=== PATIENT | male | born 1950 | race Caucasian/White ===

== ENCOUNTER → 2018-09-05 09:44 | Outpatient (CLI) | payer OTHER, SELFPAY ==
--- NOTE | 2018-09-05 | DI.RAD.S_ITS ---
PROCEDURE: FL BARIUM SWALLOW INDICATIONS: DYSPHAGIA COMPARISON: None. FINDINGS: Function: There is decreased and delayed esophageal peristalsis. Spontaneous gastroesophageal reflux to level of the upper third of the esophagus. Morphology: Air-contrast images demonstrate normal mucosal morphology. Single contrast views show no esophageal strictures, extrinsic mass effects, or diverticula. Limited images of the stomach demonstrate normal appearance. IMPRESSION: Severe esophageal dysmotility and delayed esophageal clearance. Spontaneous gastro-esophageal reflux to the level of the upper third of the esophagus. Dictated by: Isauro Watt M.D. on 09/05/2018 at 14:11 Approved by: Isauro Watt M.D. on 09/05/2018 at 14:13
[2018-09-05 10:41] LABS: Add Manual Diff / Slide Review NO; Basophils Absolute Auto 100 /uL (0-100); Basophils Percent Auto 1.9 % (0-2); Eosinophils Absolute Auto 500 /uL (0-450); Eosinophils Percent Auto 7.4 % (2-4); Hematocrit 49.5 % (41-53); Hemoglobin 16.4 g/dL (13.5-17.5); Lymphocytes Absolute Auto 1900 /uL (1100-4500); Lymphocytes Percent Auto 27.4 % (25-40); Mean Corpuscular HGB Conc 33.1 % (30-36); Mean Corpuscular Hemoglobin 28.5 PG (26-34); Mean Corpuscular Volume 85.9 fL (80-100); Monocytes Absolute Auto 600 /uL (0-900); Monocytes Percent Auto 8.5 % (3-14); Neutrophils Absolute Auto 3800 /uL (1500-7000); Neutrophils Percent Auto 54.8 % (50-75); Platelet Count 249 X10^3/uL (150-400); Red Blood Cell Count 5.76 X10^6/uL (4.5-5.9); Red Cell Distribution Width 14.8 % (11.6-14.8); White Blood Cell Count 6.9 X10^3/uL (4.5-11.0)
[2018-09-05 11:01] LABS: Alanine Aminotransferase 22 IU/L (21-72); Albumin Globulin Ratio 1.3 (1.0-2.8); Alkaline Phosphatase 88 U/L (38-126); Aspartate Aminotransferase 18 IU/L (17-59); Bilirubin Total 0.5 mg/dL (0.2-1.3); Blood Urea Nitrogen 18 mg/dL (9-20); Calcium 9.3 mg/dL (8.4-10.2); Carbon Dioxide 24 mmol/L (22-32); Chloride 109 mmol/L (98-107); Cholesterol 266 mg/dL (140-199); Estimated Glomerular Filt Rate > 60.0 mL/min (>60); Globulin 3.1 g/dL (1.7-4.1); Glucose 123 mg/dL (80-110); HDL Cholesterol 52 mg/dL (40-60); HEMOLYSIS < 15 (0-50); LDL Cholesterol Calculated 197 mg/dL (<100); Potassium 4.1 mmol/L (3.4-5.1); Sodium 141 mmol/L (137-145); Total Protein 7.1 g/dL (6.3-8.2); Triglycerides 87 mg/dL (35-150)
[2018-09-05 11:29] LABS: Prostate Specific Antigen Scrn 1.84 ng/mL (0.1-4.0)
--- NOTE | 2018-09-05 12:09 | DI.CT.S_ITS ---
PROCEDURE: CT CHEST WO CON INDICATIONS: DYSPNEA TECHNIQUE: Noncontrast 5 mm thick sections acquired from the pulmonary apices to the posterior costophrenic angles. 7 mm thick coronal and sagittal MIP reformats were then acquired. For radiation dose reduction, the following was used: automated exposure control, adjustment of mA and/or kV according to patient size. COMPARISON: None. FINDINGS: Image quality: Excellent. Lungs and pleura: No acute consolidation. Scattered subsegmental atelectasis and/or scarring. Bilateral upper lobe centrilobular emphysema. Subpleural scarring with calcification seen in the lingula, and along the right fissure. Punctate calcified granulomas in both lung bases. No pleural effusions or pneumothorax. Central and peripheral airways are patent and normal in caliber. There is presumed adherent/nondependent debris seen within the trachea on image 50 series 3 although technically nonspecific and could be further assessed with bronchoscopy if clinically necessary. Mild scattered areas of subpleural reticulation. Mediastinum: Heart size is normal. No pericardial effusion. No mediastinal adenopathy by size criteria. Calcified left hilar lymph nodes. Thoracic aorta and central pulmonary arteries are normal in size. Small hiatal hernia. Bones and chest wall: No suspicious bony lesions. No vertebral body compression fractures. No axillary or supraclavicular adenopathy by size criteria. Thyroid gland unremarkable. Abdomen: Low-attenuation 1 cm left adrenal nodule presumably adenoma image 65 series 2. IMPRESSION: No acute consolidation. Bilateral upper lobe centrilobular emphysema. Few scattered areas of bibasilar subpleural reticulation, technically nonspecific. No honeycombing appearance seen. These could be monitored with continued CT chest surveillance as clinically warranted. Small hiatal hernia. Additional chronic and incidental findings as above. Dictated by: Isauro Watt M.D. on 09/05/2018 at 13:05 Approved by: Isauro Watt M.D. on 09/05/2018 at 13:29
== END ==
PROVIDERS: PCP Internal Medicine; Visit Provider Internal Medicine
DX: R06.09 Other forms of dyspnea (principal); R13.10 Dysphagia, unspecified; J43.2 Centrilobular emphysema; E27.9 Disorder of adrenal gland, unspecified; K44.9 Diaphragmatic hernia without obstruction or gangrene; K21.9 Gastro-esophageal reflux disease without esophagitis; K22.4 Dyskinesia of esophagus; Z12.5 Encounter for screening for malignant neoplasm of prostate
CPT/HCPCS: 36415; 71250; 74220; 80053; 80061; 85025; G0103

== ENCOUNTER → 2018-09-29 09:51 | Outpatient (CLI) | payer OTHER, SELFPAY ==
--- NOTE | 2018-09-29 | DI.US.S_ITS ---
PROCEDURE: US ABD AORTA ANEURYSM SCREEN INDICATIONS: SCREENING FOR CARDIOVASCULAR DISORDER TECHNIQUE: Real time scanning was performed of the aorta and iliac arteries, with image documentation. COMPARISON: None. FINDINGS: Aorta: Proximal aortic diameter measures 2.4 cm. Mid-aorta measures 2.3 cm. Distal aortic diameter is 1.9 cm. Vascular calcifications indicate atherosclerosis. Iliac arteries: Right common iliac artery measures 1.2 cm. Left common iliac artery measures 1.1 cm. IMPRESSION: No abdominal aortic or proximal common iliac artery aneurysm. Dictated by: Suman Aguilar [facility] Interpreted: Isauro Watt MD on 09/29/2018 at 10:16 Approved by: Isauro Watt M.D. on 09/29/2018 at 14:52
== END ==
PROVIDERS: PCP Internal Medicine; Visit Provider Internal Medicine
DX: I70.0 Atherosclerosis of aorta (principal); Z13.6 Encounter for screening for cardiovascular disorders
CPT/HCPCS: 76706

== ENCOUNTER → 2018-12-06 10:27 | Outpatient (CLI) | payer OTHER, SELFPAY ==
[2018-12-06 11:56] LABS: Alanine Aminotransferase 23 IU/L (21-72); Albumin Globulin Ratio 1.4 (1.0-2.8); Alkaline Phosphatase 123 U/L (38-126); Aspartate Aminotransferase 23 IU/L (17-59); Bilirubin Total 0.4 mg/dL (0.2-1.3); Blood Urea Nitrogen 21 mg/dL (9-20); Calcium 9.6 mg/dL (8.4-10.2); Carbon Dioxide 25 mmol/L (22-32); Chloride 106 mmol/L (98-107); Cholesterol 162 mg/dL (140-199); Estimated Glomerular Filt Rate > 60.0 mL/min (>60); Globulin 2.8 g/dL (1.7-4.1); Glucose 120 mg/dL (80-110); HDL Cholesterol 54 mg/dL (40-60); HEMOLYSIS < 15 (0-50); LDL Cholesterol Calculated 92 mg/dL (<100); Potassium 4.3 mmol/L (3.4-5.1); Sodium 139 mmol/L (137-145); Total Protein 6.8 g/dL (6.3-8.2); Triglycerides 82 mg/dL (35-150)
== END ==
PROVIDERS: PCP Internal Medicine; Visit Provider Internal Medicine
DX: E78.00 Pure hypercholesterolemia, unspecified (principal)
CPT/HCPCS: 36415; 80053; 80061

== ENCOUNTER → 2019-08-15 11:38 | Outpatient (CLI) | payer OTHER, SELFPAY ==
[2019-08-15 11:51] LABS: Bacteria Urine None Seen; RBC Urine None Seen (0-5/HPF); WBC Urine None Seen (0-5/HPF)
[2019-08-15 12:22] LABS: Appearance Urine UA CLEAR; Bilirubin Urine UA NEGATIVE (NEGATIVE); Color Urine UA YELLOW; Glucose Urine UA NEGATIVE (Negative); Ketones Urine UA NEGATIVE (NEGATIVE); Leukocyte Esterase Urine UA NEGATIVE (NEGATIVE); Nitrite Urine UA NEGATIVE (Negative); Occult Blood Urine UA NEGATIVE (Negative); Protein Urine UA NEGATIVE (Negative); Specific Gravity Urine UA 1.015 (1.000-1.035); Urobilinogen Urine UA 0.2 E.U./dL (0.2); pH Urine UA 5.5 (4.5-8.0)
[2019-08-15 12:59] LABS: Culture Indicated Urine Cult Not Indicated; Urine Comments Microscopic Normal
== END ==
PROVIDERS: PCP Student in an Organized Health Care Education/Training Program; Referring Provider Student in an Organized Health Care Education/Training Program; Visit Provider Student in an Organized Health Care Education/Training Program
DX: R35.0 Frequency of micturition (principal)
CPT/HCPCS: 81001

== ENCOUNTER → 2019-09-05 07:38 | Outpatient (CLI) | payer OTHER, SELFPAY ==
--- NOTE | 2019-09-05 07:39 | DI.US.S_ITS ---
PROCEDURE: US RENAL COMPLETE INDICATIONS: URGE INCONTINENCE TECHNIQUE: Real-time scanning was performed of the kidneys and bladder, with image documentation. COMPARISON: None. FINDINGS: Kidneys: Kidneys are normal in size. Right kidney measures 8.5 cm long; left kidney measures 9.5 cm long. Right renal cortical thickness is 1.6 cm; left renal cortical thickness is 1.2 cm. Renal cortical echotexture is normal. No hydronephrosis or nephrolithiasis. No suspicious solid mass lesions. Simple right renal cyst is identified in the superior pole measuring 8 x 8 x 6 mm. Bladder: Pre-void bladder volume is 521 mL. Post-void residual is 269 mL. Pre-void images demonstrate no intraluminal masses or stones. On pre-void images, neither ureteral jets are noted with color Doppler interrogation. (Of note, ureteral jets may not be detectable in up to 25% of cases due to insufficient differences in specific gravity between ureteral and bladder urine). Miscellaneous: No free pelvic fluid. IMPRESSION: 1. Simple right renal cyst. 2. Prominent postvoid residual. Dictated by: Macarena Ann M.D. on 09/05/2019 at 10:44 Approved by: Macarena Ann M.D. on 09/05/2019 at 10:46
== END ==
PROVIDERS: PCP Student in an Organized Health Care Education/Training Program; Referring Provider Student in an Organized Health Care Education/Training Program; Visit Provider Student in an Organized Health Care Education/Training Program
DX: R35.0 Frequency of micturition (principal); N28.1 Cyst of kidney, acquired
CPT/HCPCS: 76770

== ENCOUNTER → 2019-09-12 11:18 | Outpatient (CLI) | payer OTHER, SELFPAY ==
[2019-09-12 12:05] LABS: Add Manual Diff / Slide Review NO; Basophils Absolute Auto 100 /uL (0-100); Basophils Percent Auto 1.8 % (0-2); Eosinophils Absolute Auto 400 /uL (0-450); Eosinophils Percent Auto 5.4 % (2-4); Hemoglobin 15.7 g/dL (13.5-17.5); Lymphocytes Absolute Auto 2000 /uL (1100-4500); Lymphocytes Percent Auto 27.5 % (25-40); Mean Corpuscular HGB Conc 33.4 % (30-36); Mean Corpuscular Hemoglobin 28.3 PG (26-34); Mean Corpuscular Volume 84.9 fL (80-100); Monocytes Absolute Auto 700 /uL (0-900); Monocytes Percent Auto 9.4 % (3-14); Neutrophils Absolute Auto 4200 /uL (1500-7000); Neutrophils Percent Auto 55.9 % (50-75); Platelet Count 208 X10^3/uL (150-400); Red Blood Cell Count 5.54 X10^6/uL (4.5-5.9); Red Cell Distribution Width 14.4 % (11.6-14.8); White Blood Cell Count 7.4 X10^3/uL (4.5-11.0)
[2019-09-12 12:34] LABS: Alanine Aminotransferase 19 IU/L (<50); Albumin 3.8 g/dL (3.5-5.0); Albumin Globulin Ratio 1.3 (1.0-2.8); Alkaline Phosphatase 123 U/L (38-126); Aspartate Aminotransferase 20 IU/L (17-59); BUN Creatinine Ratio 15.2 (6-22); Bilirubin Total 0.6 mg/dL (0.2-1.3); Blood Urea Nitrogen 15 mg/dL (9-20); Calcium 9.3 mg/dL (8.4-10.2); Carbon Dioxide 25 mmol/L (22-32); Chloride 107 mmol/L (98-107); Estimated Glomerular Filt Rate > 60.0 mL/min (>60); Globulin 2.9 g/dL (1.7-4.1); Glucose 119 mg/dL (80-110); HEMOLYSIS < 15 (0-50); Potassium 4.2 mmol/L (3.4-5.1); Sodium 138 mmol/L (137-145); Total Protein 6.7 g/dL (6.3-8.2)
[2019-09-12 12:51] LABS: Free T4, Direct Thyroxine 1.06 ng/dL (0.78-2.19)
[2019-09-12 13:04] LABS: Thyroid Stimulating Hormone 1.13 uIU/mL (0.47-4.68)
== END ==
PROVIDERS: PCP Student in an Organized Health Care Education/Training Program; Referring Provider Psychiatry & Neurology Psychiatry; Visit Provider Psychiatry & Neurology Psychiatry
DX: F10.21 Alcohol dependence, in remission (principal); F25.0 Schizoaffective disorder, bipolar type
CPT/HCPCS: 36415; 80053; 84439; 84443; 85025

== ENCOUNTER → 2019-10-04 15:31 | Outpatient (CLI) | payer OTHER, SELFPAY ==
[2019-10-04 17:01] LABS: Prostate Specific Antigen Scrn 1.79 ng/mL (0.1-4.0)
== END ==
PROVIDERS: PCP Student in an Organized Health Care Education/Training Program; Referring Provider Student in an Organized Health Care Education/Training Program; Visit Provider Student in an Organized Health Care Education/Training Program
DX: Z12.5 Encounter for screening for malignant neoplasm of prostate (principal)
CPT/HCPCS: 36415; G0103

== ENCOUNTER → 2020-09-27 10:15 | Outpatient (CLI) | payer OTHER, SELFPAY ==
[2020-09-27 11:00] LABS: Add Manual Diff / Slide Review NO; Basophils Absolute Auto 100 /uL (0-100); Basophils Percent Auto 1.1 % (0-2); Eosinophils Absolute Auto 200 /uL (0-450); Eosinophils Percent Auto 2.5 % (2-4); Hemoglobin 16.4 g/dL (13.5-17.5); Lymphocytes Absolute Auto 2300 /uL (1100-4500); Lymphocytes Percent Auto 30.7 % (25-40); Mean Corpuscular HGB Conc 32.8 % (30-36); Mean Corpuscular Hemoglobin 28.1 PG (26-34); Mean Corpuscular Volume 85.6 fL (80-100); Monocytes Absolute Auto 700 /uL (0-900); Neutrophils Absolute Auto 4300 /uL (1500-7000); Neutrophils Percent Auto 56.7 % (50-75); Platelet Count 224 X10^3/uL (150-400); Red Blood Cell Count 5.84 X10^6/uL (4.5-5.9); Red Cell Distribution Width 14.7 % (11.6-14.8); White Blood Cell Count 7.5 X10^3/uL (4.5-11.0)
[2020-09-27 11:24] LABS: Hemoglobin A1C% w Est Avg Glu 5.6 % (4.0-6.0)
[2020-09-27 11:25] LABS: Alanine Aminotransferase 27 IU/L (<50); Albumin 3.8 g/dL (3.5-5.0); Albumin Globulin Ratio 1.2 (1.0-2.8); Alkaline Phosphatase 113 U/L (38-126); Aspartate Aminotransferase 29 IU/L (17-59); BUN Creatinine Ratio 14.5 (6-22); Bilirubin Total 0.7 mg/dL (0.2-1.3); Blood Urea Nitrogen 16 mg/dL (9-20); Calcium 9.2 mg/dL (8.4-10.2); Carbon Dioxide 23 mmol/L (22-32); Chloride 109 mmol/L (98-107); Cholesterol 152 mg/dL (140-199); Estimated Glomerular Filt Rate > 60.0 mL/min (>60); Globulin 3.3 g/dL (1.7-4.1); Glucose 117 mg/dL (80-110); HDL Cholesterol 58 mg/dL (40-60); HEMOLYSIS < 15 (0-50); LDL Cholesterol Calculated 72 mg/dL (<100); Potassium 4.2 mmol/L (3.4-5.1); Sodium 138 mmol/L (137-145); Total Protein 7.1 g/dL (6.3-8.2); Triglycerides 111 mg/dL (35-150)
== END ==
PROVIDERS: PCP Student in an Organized Health Care Education/Training Program; Referring Provider Psychiatry & Neurology Psychiatry; Visit Provider Psychiatry & Neurology Psychiatry
DX: E78.2 Mixed hyperlipidemia (principal); F25.0 Schizoaffective disorder, bipolar type
CPT/HCPCS: 36415; 80053; 80061; 83036; 85025

== ENCOUNTER 2020-10-14 12:07 | Emergency (ER) | payer OTHER, SELFPAY ==
[2020-10-14] VITALS (8 sets, daily range): BP systolic 127–162; BP diastolic 66–92; PULSE 67–90; RESP 16; TEMP 36.5; O2SAT 93–94; BMI 31.1
[2020-10-14 13:30] LABS: Add Manual Diff / Slide Review NO; Basophils Absolute Auto 100 /uL (0-100); Basophils Percent Auto 0.8 % (0-2); Eosinophils Absolute Auto 100 /uL (0-450); Eosinophils Percent Auto 1.2 % (2-4); Hematocrit 50.2 % (41-53); Hemoglobin 16.2 g/dL (13.5-17.5); Lymphocytes Absolute Auto 1900 /uL (1100-4500); Mean Corpuscular HGB Conc 32.2 % (30-36); Mean Corpuscular Hemoglobin 27.7 PG (26-34); Mean Corpuscular Volume 86.1 fL (80-100); Monocytes Absolute Auto 900 /uL (0-900); Monocytes Percent Auto 10.2 % (3-14); Neutrophils Absolute Auto 5600 /uL (1500-7000); Neutrophils Percent Auto 65.8 % (50-75); Platelet Count 250 X10^3/uL (150-400); Red Blood Cell Count 5.83 X10^6/uL (4.5-5.9); Red Cell Distribution Width 14.4 % (11.6-14.8); White Blood Cell Count 8.5 X10^3/uL (4.5-11.0)
[2020-10-14 13:42] LABS: Alanine Aminotransferase 25 IU/L (<50); Albumin Globulin Ratio 1.1 (1.0-2.8); Alkaline Phosphatase 128 U/L (38-126); Aspartate Aminotransferase 30 IU/L (17-59); BUN Creatinine Ratio 11.4 (6-22); Bilirubin Total 0.8 mg/dL (0.2-1.3); Blood Urea Nitrogen 12 mg/dL (9-20); Calcium 9.3 mg/dL (8.4-10.2); Carbon Dioxide 24 mmol/L (22-32); Chloride 108 mmol/L (98-107); Estimated Glomerular Filt Rate > 60.0 mL/min (>60); Globulin 3.6 g/dL (1.7-4.1); Glucose 126 mg/dL (80-110); HEMOLYSIS 21 (0-50); Lipase 62 U/L (23-300); Sodium 138 mmol/L (137-145); Total Protein 7.6 g/dL (6.3-8.2)
[2020-10-14] MEDS: SODIUM CHLORIDE 0.9% 1,000 ML 150 ML IV (14:05)
[2020-10-14] MEDS: KETOROLAC 30 MG/ML VIAL 15 MG IV (14:05)
--- NOTE | 2020-10-14 14:11 | DI.CT.S_ITS ---
PROCEDURE: CT ABDOMEN PELVIS W CON INDICATIONS: Abdominal pain TECHNIQUE: After the administration of intravenous contrast, axial sections acquired from the lung bases to the pubic symphysis. Coronal and sagittal reformats were performed. For radiation dose reduction, the following was used: automated exposure control, adjustment of mA and/or kV according to patient size. COMPARISON: None. FINDINGS: Image quality: Excellent. Lung bases: Mild bibasilar dependent atelectasis is seen. Heart: Heart size is borderline enlarged, no pericardial effusion. ABDOMEN: Liver: Moderate hepatic steatosis is seen. Subtle hypodensity in posterior right hepatic dome is seen measures 4 millimeter in size and is too small to adequately characterize series 2, image 23. . Gallbladder: Unremarkable. Biliary ducts: Unremarkable. Pancreas: Unremarkable. Spleen: Unremarkable. Adrenal Glands: 1.4 x 1 cm hypodense nodule in left adrenal gland is seen and may represent adrenal adenoma. 1.2 cm hypodense nodule in superior aspect of right adrenal gland is also noted. Kidneys and Ureters: Unremarkable. Stomach and Bowel: There is a small hiatal hernia. No evidence of bowel obstruction. No gross gastric, or small bowel wall thickening. Colonic diverticulosis is noted. There is wall thickening with pericolonic fat stranding involving distal descending colon/proximal sigmoid colon in left lower quadrant abdomen series 2, image 66 suggestive of acute diverticulitis. No abscess collection. Peritoneum: No abnormal intraperitoneal fluid. No free air. Ventral Wall: No hernias. Abdominal Nodes: No retroperitoneal or mesenteric adenopathy by size criteria. Vessels: Aorta and inferior vena cava are normal in size. Moderate atherosclerotic calcifications throughout abdominal aorta is seen. PELVIS: Pelvic Organs: Unremarkable. Bladder: Unremarkable. Pelvic Nodes: No enlarged lymph nodes. Miscellaneous: No hernias are seen. Bones: Degenerative disc disease in lower lumbar spine is seen most prominent at L4-5 level. No acute vertebral body compression fracture. IMPRESSION: 1. Finding is consistent with acute diverticulitis involving distal descending colon/proximal sigmoid colon in left lower quadrant. No signs of perforation or abscess collection. No free fluid or free air. No evidence of bowel obstruction. 2. Oval hypodense nodule seen in bilateral adrenal glands as above, likely represent adrenal adenoma. Dictated by: Roland Guy M.D. on 10/14/2020 at 14:15 Approved by: Roland Guy M.D. on 10/14/2020 at 14:19
[2020-10-14] MEDS: MORPHINE 4 MG/ML INJ IV (16:50)
[2020-10-14] MEDS: metroNIDAZOLE 500 MG TABLET PO (16:51)
[2020-10-14] MEDS: CIPROFLOXACIN 250 MG TABLET 500 MG PO (17:03)
--- NOTE | 2020-10-19 11:43 | ED.ABDPAIN ---
HPI - Abdominal Pain <Yaquelin Menard PA-C - Last Filed: 10/19/20 12:13> General Chief Complaint: Abdominal Pain Stated Complaint: Left Sided Abd Pain Time Seen by Provider: 10/14/20 13:00 Source: patient Mode of arrival: Ambulatory Limitations: no limitations History of Present Illness HPI narrative: 70 yo M with PMH BPH, HLD, depression, GERD, ETOH dependence in remission, schizoaffective disorder presents to the ED with 1 week of left lower quadrant pain. Pain started in the epigastric region, migrated to the LLQ over the last week. Denies fever, chills, chest pain, SOB, nausea, vomiting, dysuria, light headedness, syncope, flank pain. Describes pain as sharp that comes and goes. Related Data Previous Rx's Medication Instructions Recorded hydroxyzine pamoate 100 mg capsule 100 mg PO BEDTIME #90 cap 04/18/20 mirtazapine 30 mg tablet 30 mg PO DAILY #90 tab 04/18/20 olanzapine 20 mg tablet 20 mg PO DAILY #90 tab 04/18/20 atorvastatin 40 mg tablet 40 mg PO DAILY #90 tab 06/26/20 omeprazole 40 mg capsule,delayed 40 mg PO DAILY #90 cap 06/26/20 release mirabegron 25 mg tablet,extended 25 mg PO DAILY #30 tab 09/25/20 release 24 hr (Myrbetriq) mupirocin calcium 2 % topical cream 1 applic TOPICAL BID 14 Days #15 g 10/22/20 Allergies Allergy/AdvReac Type Severity Reaction Status Date / Time No Known Drug Allergies Allergy Verified 10/22/20 11:29 Review of Systems <Yaquelin Menard PA-C - Last Filed: 10/19/20 12:13> Constitutional Constitutional: Denies chills, Denies fever(s), Denies frequent falls, Denies lethargy and Denies weakness ENT Ears, Nose, Mouth, and Throat: Denies dizziness Cardiovascular Cardiovascular: Denies chest pain, Denies irregular heart rhythm, Denies lightheadedness, Denies palpitations, Denies dyspnea, Denies dyspnea on exertion and Denies orthopnea Respiratory Respiratory: Denies cough, Denies dyspnea, Denies dyspnea on exertion and Denies wheezing Gastrointestinal Gastrointestinal: Reports abdominal pain, Denies change in bowel habits, Denies diarrhea, Denies nausea and Denies vomiting Musculoskeletal Musculoskeletal: Denies numbness Integumentary/Breasts Skin/Breast: Denies pruritus, Denies erythema, Denies rash and Denies wounds Neurologic Neurologic: Denies behavioral changes, Denies confusion, Denies dizziness, Denies frequent falls, Denies numbness and Denies weakness Psychiatric Psychiatric: Denies behavioral changes and Denies confusion Endocrine Endocrine: Denies palpitations Allergic/Immunologic Allergic/Immunologic: Denies wheezing Patient History <Yaquelin Menard PA-C - Last Filed: 10/19/20 12:13> Medical History (Updated 10/29/20 @ 00:00 by ) Depression (~1999) GERD (gastroesophageal reflux disease) Hemorrhoid (~2019) Surgical History Abdominal hernia (~1989) Anesthesia Family History Father Hypertension Hyperlipidemia Mother Hypertension Social History marital status: number of children: 2 Smoking Status: Former smoker alcohol intake: former caffeine: Yes Smoking Status: Former smoker alcohol intake frequency: 0-2 drinks per day Substance Use Type: does not use Exam <Yaquelin Menard PA-C - Last Filed: 10/19/20 12:13> Initial Vital Signs Initial Vital Signs: Vital Signs Temperature 97.7 F 10/14/20 12:35 Pulse Rate 90 10/14/20 12:35 Respiratory Rate 16 10/14/20 12:35 Blood Pressure 162/92 H 10/14/20 12:35 Pulse Oximetry 93 10/14/20 12:35 Const General: cooperative Chest Chest: normal inspection of the chest Resp Effort & Inspection: normal respiratory effort, able to speak in complete sentences, no respiratory distress and no use of accessory muscles Auscultation: clear to auscultation bilaterally, no rales, no rhonchi and no wheezes Cardio Rate: regular rate Rhythm: regular rhythm Heart Sounds: no click, no gallops, no murmurs and no rubs Pulses: normal peripheral pulses GI Inspection: non-distended Palpation: soft, no hepatosplenomegaly, No guarding, No pulsatile mass and tender Auscultation: normal bowel sounds Other: TTP LLQ, no guarding, no rebound General: No CVA tenderness Back/Spine/Pelvis Back: No CVA tenderness Cervical Spine: cervical ROM normal and No pain with cervical ROM Thoracic/Lumbar Spine: thoracic and lumbar spine normal to inspection Skin General: no rashes or lesions noted, No jaundice and No petechiae Neuro General: patient alert, patient oriented x3, gait normal and no focal motor deficits Speech: speech normal Extrem General: full ROM, no clubbing, cyanosis or edema, no pedal edema and no calf tenderness Psych Appearance: well kempt Mental Status: mental status grossly normal Attitude: cooperative Thought Content: normal and suicidality Judgment: judgment good <Alejandro Alvarez DO - Last Filed: 10/31/20 07:08> Initial Vital Signs Initial Vital Signs: Vital Signs Temperature 97.7 F 10/14/20 12:35 Pulse Rate 90 10/14/20 12:35 Respiratory Rate 16 10/14/20 12:35 Blood Pressure 162/92 H 10/14/20 12:35 Pulse Oximetry 93 10/14/20 12:35 Course <Yaquelin Menard PA-C - Last Filed: 10/19/20 12:13> Course Course Narrative: CT abdomen pelvis positive for uncomplicated, acute diverticulitis without abscess, perforation. Patient's pain well controlled with ketorolac, morphine. patient started on Flagyl and ciprofloxacin.Patient tolerating p.o. will discharge home on clear liquid diet, Flagyl, ciprofloxacin Orders Ordered: Discontinued Medications Ciprofloxacin (Ciprofloxacin 250 Mg Tablet) 500 mg PO NOW ONE Stop: 10/14/20 16:24 Last Admin: 10/14/20 17:03 Dose: 500 mg Documented by: ELLIOT Sodium Chloride (Normal Saline 0.9%) 1,000 mls @ 150 mls/hr IV CONT REED Last Infusion: 10/14/20 18:04 Dose: 0 mls/hr Documented by: Admin: 10/14/20 14:05 Dose: 150 mls/hr Documented by: ELLIOT Ketorolac Tromethamine (Ketorolac 30 Mg/Ml Vial) 15 mg IV NOW ONE Stop: 10/14/20 13:22 Last Admin: 10/14/20 14:05 Dose: 15 mg Documented by: ELLIOT Metronidazole (Metronidazole 500 Mg Tablet) 500 mg PO NOW ONE Stop: 10/14/20 16:24 Last Admin: 10/14/20 16:51 Dose: 500 mg Documented by: ELLIOT Morphine Sulfate (Morphine 4 Mg/Ml Inj) 4 mg IV NOW ONE Stop: 10/14/20 16:22 Last Admin: 10/14/20 16:50 Dose: 4 mg Documented by: ELLIOT <Alejandro Alvarez DO - Last Filed: 10/31/20 07:08> Orders Ordered: Discontinued Medications Ciprofloxacin (Ciprofloxacin 250 Mg Tablet) 500 mg PO NOW ONE Stop: 10/14/20 16:24 Last Admin: 10/14/20 17:03 Dose: 500 mg Documented by: ELLIOT Sodium Chloride (Normal Saline 0.9%) 1,000 mls @ 150 mls/hr IV CONT REED Last Infusion: 10/14/20 18:04 Dose: 0 mls/hr Documented by: Admin: 10/14/20 14:05 Dose: 150 mls/hr Documented by: ELLIOT Ketorolac Tromethamine (Ketorolac 30 Mg/Ml Vial) 15 mg IV NOW ONE Stop: 10/14/20 13:22 Last Admin: 10/14/20 14:05 Dose: 15 mg Documented by: ELLIOT Metronidazole (Metronidazole 500 Mg Tablet) 500 mg PO NOW ONE Stop: 10/14/20 16:24 Last Admin: 10/14/20 16:51 Dose: 500 mg Documented by: ELLIOT Morphine Sulfate (Morphine 4 Mg/Ml Inj) 4 mg IV NOW ONE Stop: 10/14/20 16:22 Last Admin: 10/14/20 16:50 Dose: 4 mg Documented by: ELLIOT MDM - Abdominal Pain <Yaquelin Menard PA-C - Last Filed: 10/19/20 12:13> Medical Records Attestation: I reviewed the patient's medical records. Lab Data Attestation: I reviewed the patient's lab results. Lab results narrative: Labs WNL, no transaminitis, lipase WNL Result diagrams: 10/14/20 12:30 10/14/20 12:30 Labs: Lab Results 10/14/20 10/14/20 Range/Units 12:30 12:30 WBC 8.5 (4.5-11.0) X10^3/uL RBC 5.83 (4.5-5.9) X10^6/uL Hgb 16.2 (13.5-17.5) g/dL Hct 50.2 (41-53) % MCV 86.1 (80-100) fL MCH 27.7 (26-34) PG MCHC 32.2 (30-36) % RDW 14.4 (11.6-14.8) % Plt Count 250 (150-400) X10^3/uL Neut % (Auto) 65.8 (50-75) % Lymph % (Auto) 22.0 L (25-40) % [place] % (Auto) 10.2 (3-14) % Eos % (Auto) 1.2 L (2-4) % Baso % (Auto) 0.8 (0-2) % Neut # (Auto) 5600 (7694-9358) /uL Lymph # (Auto) 1900 (0325-8172) /uL [place] # (Auto) 900 (0-900) /uL Eos # (Auto) 100 (0-450) /uL Baso # (Auto) 100 (0-100) /uL Sodium 138 (137-145) mmol/L Potassium 4.0 (3.4-5.1) mmol/L Chloride 108 H (98-107) mmol/L Carbon Dioxide 24 (22-32) mmol/L BUN 12 (9-20) mg/dL Creatinine 1.05 (0.66-1.25) mg/dL Estimated GFR > 60.0 (>60) mL/min BUN/Creatinine Ratio 11.4 (6-22) Glucose 126 H (80-110) mg/dL Calcium 9.3 (8.4-10.2) mg/dL Total Bilirubin 0.8 (0.2-1.3) mg/dL AST 30 (17-59) IU/L ALT 25 (<50) IU/L Alkaline Phosphatase 128 H (38-126) U/L Total Protein 7.6 (6.3-8.2) g/dL Albumin 4.0 (3.5-5.0) g/dL Globulin 3.6 (1.7-4.1) g/dL Albumin/Globulin Ratio 1.1 (1.0-2.8) Lipase 62 (23-300) U/L Imaging Data CT scan - abdomen/pelvis: Radiologist's Impression: PROCEDURE: CT ABDOMEN PELVIS W CON INDICATIONS: Abdominal pain TECHNIQUE: After the administration of intravenous contrast, axial sections acquired from the lung bases to the pubic symphysis. Coronal and sagittal reformats were performed. For radiation dose reduction, the following was used: automated exposure control, adjustment of mA and/or kV according to patient size. COMPARISON: None. FINDINGS: Image quality: Excellent. Lung bases: Mild bibasilar dependent atelectasis is seen. Heart: Heart size is borderline enlarged, no pericardial effusion. ABDOMEN: Liver: Moderate hepatic steatosis is seen. Subtle hypodensity in posterior right hepatic dome is seen measures 4 millimeter in size and is too small to adequately characterize series 2, image 23. . Gallbladder: Unremarkable. Biliary ducts: Unremarkable. Pancreas: Unremarkable. Spleen: Unremarkable. Adrenal Glands: 1.4 x 1 cm hypodense nodule in left adrenal gland is seen and may represent adrenal adenoma. 1.2 cm hypodense nodule in superior aspect of right adrenal gland is also noted. Kidneys and Ureters: Unremarkable. Stomach and Bowel: There is a small hiatal hernia. No evidence of bowel obstruction. No gross gastric, or small bowel wall thickening. Colonic diverticulosis is noted. There is wall thickening with pericolonic fat stranding involving distal descending colon/proximal sigmoid colon in left lower quadrant abdomen series 2, image 66 suggestive of acute diverticulitis. No abscess collection. Peritoneum: No abnormal intraperitoneal fluid. No free air. Ventral Wall: No hernias. Abdominal Nodes: No retroperitoneal or mesenteric adenopathy by size criteria. Vessels: Aorta and inferior vena cava are normal in size. Moderate atherosclerotic calcifications throughout abdominal aorta is seen. PELVIS: Pelvic Organs: Unremarkable. Bladder: Unremarkable. Pelvic Nodes: No enlarged lymph nodes. Miscellaneous: No hernias are seen. Bones: Degenerative disc disease in lower lumbar spine is seen most prominent at L4-5 level. No acute vertebral body compression fracture. IMPRESSION: 1. Finding is consistent with acute diverticulitis involving distal descending colon/proximal sigmoid colon in left lower quadrant. No signs of perforation or abscess collection. No free fluid or free air. No evidence of bowel obstruction. 2. Oval hypodense nodule seen in bilateral adrenal glands as above, likely represent adrenal adenoma. Dictated by: Roland Guy M.D. on 10/14/2020 at 14:15 Approved by: Roland Guy M.D. on 10/14/2020 at 14:19 [facility] Narrative Medical decision making narrative: 70 yo M with PMH BPH, HLD, depression, GERD, ETOH dependence in remission, schizoaffective disorder presents to the ED with 1 week of left lower quadrant pain. Concern for acute diverticulitis versus constipation versus GERD versus gastritis versus pancreatitis. Will order labs, CT abdomen pelvis. Will give ketorolac for pain, IV hydration, will reassess. Dispo dependent on results of workup. <Alejandro Alvarez DO - Last Filed: 10/31/20 07:08> Lab Data Labs: Lab Results 10/14/20 10/14/20 Range/Units 12:30 12:30 WBC 8.5 (4.5-11.0) X10^3/uL RBC 5.83 (4.5-5.9) X10^6/uL Hgb 16.2 (13.5-17.5) g/dL Hct 50.2 (41-53) % MCV 86.1 (80-100) fL MCH 27.7 (26-34) PG MCHC 32.2 (30-36) % RDW 14.4 (11.6-14.8) % Plt Count 250 (150-400) X10^3/uL Neut % (Auto) 65.8 (50-75) % Lymph % (Auto) 22.0 L (25-40) % [place] % (Auto) 10.2 (3-14) % Eos % (Auto) 1.2 L (2-4) % Baso % (Auto) 0.8 (0-2) % Neut # (Auto) 5600 (4449-7528) /uL Lymph # (Auto) 1900 (8288-3779) /uL [place] # (Auto) 900 (0-900) /uL Eos # (Auto) 100 (0-450) /uL Baso # (Auto) 100 (0-100) /uL Sodium 138 (137-145) mmol/L Potassium 4.0 (3.4-5.1) mmol/L Chloride 108 H (98-107) mmol/L Carbon Dioxide 24 (22-32) mmol/L BUN 12 (9-20) mg/dL Creatinine 1.05 (0.66-1.25) mg/dL Estimated GFR > 60.0 (>60) mL/min BUN/Creatinine Ratio 11.4 (6-22) Glucose 126 H (80-110) mg/dL Calcium 9.3 (8.4-10.2) mg/dL Total Bilirubin 0.8 (0.2-1.3) mg/dL AST 30 (17-59) IU/L ALT 25 (<50) IU/L Alkaline Phosphatase 128 H (38-126) U/L Total Protein 7.6 (6.3-8.2) g/dL Albumin 4.0 (3.5-5.0) g/dL Globulin 3.6 (1.7-4.1) g/dL Albumin/Globulin Ratio 1.1 (1.0-2.8) Lipase 62 (23-300) U/L Discharge Plan Departure Patient Disposition: Home Clinical Impression: Diverticulitis Instructions: DI for Diverticulitis Activity Restrictions/Additional Instructions: Clear fluid diet for 3 days, follow up with PCP in 3 days. Return to the ED if pain worsens, unable to tolerate fluids by mouth. Prescriptions: No Action olanzapine 20 mg tablet 20 mg PO DAILY Qty: 90 RF: 3 mirtazapine 30 mg tablet 30 mg PO DAILY Qty: 90 RF: 3 hydroxyzine pamoate 100 mg capsule 100 mg PO BEDTIME Qty: 90 RF: 3 atorvastatin 40 mg tablet 40 mg PO DAILY Qty: 90 RF: 3 omeprazole 40 mg capsule,delayed release(DR/EC) 40 mg PO DAILY Qty: 90 RF: 3 Myrbetriq 25 mg tablet extended release 24 hr 25 mg PO DAILY Qty: 30 RF: 0 mupirocin calcium 2 % cream 1 applic topical BID 14 Days Qty: 15 RF: 0 Referrals: Amol Arce MD [Primary Care Provider] - <Alejandro Alvarez DO - Last Filed: 10/31/20 07:08> Cosign ED Attending Cosignature Attestation: Dr Alvarez Co-Sign Statement: I was available for consultation during this patient's emergency department visit. This chart is signed by myself for administrative purposes only. I did not have direct contact with this patient during this visit. They were seen independently by the APC.
== END 2020-10-14 18:18 | disposition home or self-care (01) ==
PROVIDERS: Emergency Provider Student in an Organized Health Care Education/Training Program; PCP Student in an Organized Health Care Education/Training Program
DX: K57.92 Diverticulitis of intestine, part unspecified, without perforation or abscess without bleeding (principal); R10.32 Left lower quadrant pain
CPT/HCPCS: 36415; 74177; 80053; 83690; 85025; 93005; 93010; 99284; J1885; J2270

== ENCOUNTER → 2020-10-24 09:54 | Outpatient (CLI) | payer OTHER, SELFPAY ==
[2020-10-24 11:03] LABS: Cortisol AM (Before 10AM) 19.4 ug/dL (4.46-22.7)
[2020-10-25 09:31] LABS: Adrenocorticotropic Hormone 20.6 pg/mL (7.2-63.3)
== END ==
PROVIDERS: PCP Student in an Organized Health Care Education/Training Program; Referring Provider Student in an Organized Health Care Education/Training Program; Visit Provider Student in an Organized Health Care Education/Training Program
DX: E27.8 Other specified disorders of adrenal gland (principal)
CPT/HCPCS: 36415; 82024; 82533

== ENCOUNTER → 2020-10-25 10:27 | Outpatient (CLI) | payer OTHER, SELFPAY ==
[2020-10-29 13:36] LABS: Fecal Immunochemical Test Negative (Negative)
== END ==
PROVIDERS: PCP Student in an Organized Health Care Education/Training Program; Referring Provider Student in an Organized Health Care Education/Training Program; Visit Provider Student in an Organized Health Care Education/Training Program
DX: Z12.11 Encounter for screening for malignant neoplasm of colon (principal)
CPT/HCPCS: 82274

== ENCOUNTER → 2021-08-27 11:37 | Outpatient (CLI) | payer OTHER, SELFPAY ==
[2021-08-27 12:46] LABS: Hemoglobin A1C% w Est Avg Glu 5.8 % (4.0-6.0)
[2021-08-27 12:51] LABS: Alanine Aminotransferase 36 IU/L (<50); Albumin Globulin Ratio 1.3 (1.0-2.8); Alkaline Phosphatase 108 U/L (38-126); Aspartate Aminotransferase 37 IU/L (17-59); BUN Creatinine Ratio 10.7 (6-22); Bilirubin Total 0.7 mg/dL (0.2-1.3); Blood Urea Nitrogen 12 mg/dL (9-20); Calcium 8.6 mg/dL (8.4-10.2); Carbon Dioxide 30 mmol/L (22-32); Chloride 104 mmol/L (98-107); Cholesterol 162 mg/dL (140-199); Estimated Glomerular Filt Rate > 60 mL/min (>60); Globulin 3.2 g/dL (1.7-4.1); Glucose 119 mg/dL (80-110); HDL Cholesterol 54 mg/dL (40-60); HEMOLYSIS < 15 (0-50); LDL Cholesterol Calculated 86 mg/dL (<100); Potassium 4.3 mmol/L (3.4-5.1); Sodium 138 mmol/L (137-145); Total Protein 7.2 g/dL (6.3-8.2); Triglycerides 109 mg/dL (35-150); VLDL Cholesterol Calculated 22 mg/dL (2-30)
== END ==
PROVIDERS: PCP Student in an Organized Health Care Education/Training Program; Referring Provider Student in an Organized Health Care Education/Training Program; Visit Provider Student in an Organized Health Care Education/Training Program
DX: E11.9 Type 2 diabetes mellitus without complications (principal); E78.2 Mixed hyperlipidemia; F10.21 Alcohol dependence, in remission; F25.0 Schizoaffective disorder, bipolar type; T43.505A Adverse effect of unspecified antipsychotics and neuroleptics, initial encounter
CPT/HCPCS: 36415; 80053; 80061; 83036

== ENCOUNTER 2022-02-09 12:17 | Emergency (ER) | payer OTHER, SELFPAY ==
[2022-02-09 12:46] VITALS: BP 140/73; PULSE 83; RESP 14; TEMP 36.6; O2SAT 97; BMI 32.5
--- NOTE | 2022-02-09 12:49 | DI.RAD.S_ITS ---
PROCEDURE: XR WRIST RT MIN 3V INDICATIONS: fall, pain/ deformity right wrist TECHNIQUE: 4 views of the wrist were acquired. COMPARISON: None. FINDINGS: Bones: Acute comminuted and impacted distal radial fracture is seen with slight dorsal angulation and displacement at fracture site. No suspicious bony lesions. 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 Scaphoid view: Scaphoid is intact. Soft tissues: No suspicious soft tissue calcifications. IMPRESSION: Acute comminuted, impacted and slightly displaced fracture of distal radius as above. Dictated by: Roland Guy M.D. on 02/09/2022 at 14:45 Approved by: Roland Guy M.D. on 02/09/2022 at 14:45
[2022-02-09] MEDS: HYDROCODONE/ACET 5/325 TABLET 1 TAB PO (15:57)
[2022-02-09 17:42] VITALS: PULSE 103; O2SAT 93
--- NOTE | 2022-02-17 09:16 | ED.UPPEXIN ---
HPI - Extremity Injury (Upper) <Yaquelin Menard PA-C - Last Filed: 02/17/22 09:28> General Chief Complaint: Extremity Injury, Upper Stated Complaint: Thinks broken arm Time Seen by Provider: 02/09/22 15:42 Source: patient Mode of arrival: Ambulatory History of Present Illness HPI narrative: 71-year-old male presents to the ED status post a fall and wrist injury sustained just prior to arrival. Patient states that he sustained a mechanical fall, sustained a FOOSH injury to his right wrist. Patient denies numbness, tingling, weakness. Patient is able to move his fingers. There is strength and sensation. Related Data Previous Rx's Medication Instructions Recorded hydroxyzine pamoate 100 mg capsule 100 mg PO BEDTIME Insomnia #90 caps 04/01/21 mirtazapine 30 mg tablet 30 mg PO DAILY #90 tabs 04/01/21 olanzapine 20 mg tablet 20 mg PO DAILY #90 tabs 04/01/21 atorvastatin 40 mg tablet 40 mg PO DAILY #90 tabs 08/18/21 omeprazole 40 mg capsule,delayed 40 mg PO DAILY #90 caps 08/18/21 release tirzepatide 5 mg/0.5 mL 5 mg (0.5 mL) SUBCUT QWEEK #2 mL 09/03/21 subcutaneous pen injector (Annika) hydrocodone 5 mg-acetaminophen 325 1 tab PO Q6H PRN pain #14 tabs 02/09/22 mg tablet Allergies Allergy/AdvReac Type Severity Reaction Status Date / Time No Known Drug Allergies Allergy Verified 02/09/22 12:49 Review of Systems <Yaquelin Menard PA-C - Last Filed: 02/17/22 09:28> Review of Systems ROS Unobtainable: All systems reviewed & are unremarkable except as noted in HPI and below Constitutional Constitutional: Denies chills, Denies fatigue, Denies fever(s), Denies frequent falls, Denies lethargy and Denies weakness Eyes Eyes: Denies change in vision, Denies eye discharge, Denies irritation and Denies loss of vision ENT Ears, Nose, Mouth, and Throat: Denies change in voice, Denies dizziness, Denies neck pain, Denies sore throat and Denies throat swelling Cardiovascular Cardiovascular: Denies chest pain, Denies irregular heart rhythm, Denies lightheadedness, Denies palpitations, Denies dyspnea, Denies dyspnea on exertion and Denies orthopnea Respiratory Respiratory: Denies cough, Denies dyspnea, Denies dyspnea on exertion and Denies wheezing Gastrointestinal Gastrointestinal: Denies abdominal pain, Denies change in bowel habits, Denies diarrhea, Denies nausea and Denies vomiting Genitourinary Genitourinary: Denies hematuria, Denies flank pain, Denies urinary incontinence and Denies urinary urgency Musculoskeletal Musculoskeletal: Denies back pain, Denies muscle weakness, Denies neck pain, Denies numbness and Denies tingling Comments: Right wrist pain Integumentary/Breasts Skin/Breast: Denies pruritus, Denies erythema, Denies rash and Denies wounds Neurologic Neurologic: Denies behavioral changes, Denies confusion, Denies dizziness, Denies frequent falls, Denies loss of vision, Denies numbness, Denies tingling and Denies weakness Psychiatric Psychiatric: Denies anxiety, Denies behavioral changes, Denies confusion, Denies depression, Denies homicidal ideation and Denies suicidal ideation Endocrine Endocrine: Denies fatigue, Denies flushing and Denies palpitations Hematologic/Lymphatic Hematologic/Lymphatic: Denies easy bruising Allergic/Immunologic Allergic/Immunologic: Denies urticaria, Denies throat swelling and Denies wheezing Patient History <Yaquelin Menard PA-C - Last Filed: 02/17/22 09:28> Medical History Adrenal incidentaloma Depression (~1999) GERD (gastroesophageal reflux disease) Hemorrhoid (~2019) Surgical History Abdominal hernia (~1989) Anesthesia Family History Father Hypertension Hyperlipidemia Mother Hypertension Social History marital status: number of children: 2 Smoking Status: Former smoker alcohol intake: former caffeine: Yes Smoking Status: Former smoker alcohol intake frequency: 0-2 drinks per day Substance Use Type: does not use Exam <Yaquelin Menard PA-C - Last Filed: 02/17/22 09:28> Narrative Exam Narrative: Const General: cooperative, healthy appearing and comfortable HENIL Head: normal to inspection Ears: hearing grossly normal bilaterally Nose: external nose normal Face and sinus: normal facial exam and sinuses nontender Mouth: oral mucosae normal Throat: posterior oropharynx normal Eyes General: appearance normal, both eyes and all related structures Neck Neck: normal visual inspection and no lymphadenopathy noted Resp Effort & Inspection: normal respiratory effort Auscultation: clear to auscultation bilaterally Cardio Rate: regular rate Rhythm: regular rhythm Musculoskeletal Swelling, deformity noted of right wrist. Of the right wrist. There is full range of motion. Patient is neurovascularly intact. Neuro General: patient alert, patient awake and patient oriented x3 Initial Vital Signs Initial Vital Signs: Vital Signs Temperature 97.8 F 02/09/22 12:46 Pulse Rate 83 02/09/22 12:46 Respiratory Rate 14 02/09/22 12:46 Blood Pressure 140/73 02/09/22 12:46 Pulse Oximetry 97 02/09/22 12:46 Oxygen Delivery Method 02/09/22 12:46 <Beckie Rivera DO - Last Filed: 02/18/22 06:56> Initial Vital Signs Initial Vital Signs: Vital Signs Temperature 97.8 F 02/09/22 12:46 Pulse Rate 83 02/09/22 12:46 Respiratory Rate 14 02/09/22 12:46 Blood Pressure 140/73 02/09/22 12:46 Pulse Oximetry 97 02/09/22 12:46 Oxygen Delivery Method 02/09/22 12:46 Course <Yaquelin Menard PA-C - Last Filed: 02/17/22 09:28> Orders Ordered: Discontinued Medications Hydrocodone Bitart/Acetaminophen (Hydrocodone/Acet 5/325 Tablet) 1 tab PO NOW ONE Stop: 02/09/22 15:43 Last Admin: 02/09/22 15:57 Dose: 1 tab Documented By: NR <DO Sallie Ndiaye Last Filed: 02/18/22 06:56> Orders Ordered: Discontinued Medications Hydrocodone Bitart/Acetaminophen (Hydrocodone/Acet 5/325 Tablet) 1 tab PO NOW ONE Stop: 02/09/22 15:43 Last Admin: 02/09/22 15:57 Dose: 1 tab Documented By: NR MDM - Extremity Injury (Upper) <JESSY Nunes Last Filed: 02/17/22 09:28> Imaging Data Extremity x-ray #1: Radiologist's Impression: PROCEDURE:? XR WRIST RT MIN 3V ? INDICATIONS: fall, pain/ deformity right wrist ? TECHNIQUE:? 4 views of the wrist were acquired.? ? COMPARISON:? None. ? FINDINGS:? ? Bones:? Acute comminuted and impacted distal radial fracture is seen with slight dorsal angulation and displacement at fracture site.? No suspicious bony lesions.? 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 ? Scaphoid view:? Scaphoid is intact. ? Soft tissues:? No suspicious soft tissue calcifications.? ? IMPRESSION:? Acute comminuted, impacted and slightly displaced fracture of distal radius as above.? ? ? Dictated by: Roland Guy M.D. on 02/09/2022 at 14:45 ? ? Approved by: Roland Guy M.D. on 02/09/2022 at 14:45 ? MDM Narrative Medical decision making narrative: 71-year-old male presents to the ED status post a fall and wrist injury sustained just prior to arrival. Concern for fracture/dislocation versus musculoskeletal sprain/strain. Wrist x-ray shows a comminuted fracture of the distal radius. Scaphoid is intact. Displacement was minimal, no indication for reduction. Patient was splinted with a sugar-tong splint. Recommend follow-up with ortho. Hydrocodone with acetaminophen was prescribed for pain control. ED return precautions were discussed with patient. Patient verbalized understanding. Discharge Plan Departure Patient Disposition: Home Clinical Impression: Distal radial fracture Instructions: DI for Distal Radius Fracture Activity Restrictions/Additional Instructions: You were evaluated in the ED today for a wrist injury. Your x-ray did show that you have a fracture of the wrist. Your wrist has been splinted to keep it in position. Please follow-up with [facility] at [phone] as soon as possible for further evaluation and treatment. You may take hydrocodone acetaminophen for pain control. Return to the ED if you experience any numbness, tingling, weakness, if your splint suddenly feels too tight and is cutting of blood flow. Prescriptions: New hydrocodone-acetaminophen 5-325 mg tablet 1 tab PO Q6H PRN (Reason: pain) Qty: 14 0RF No Action mirtazapine 30 mg tablet 30 mg PO DAILY Qty: 90 3RF olanzapine 20 mg tablet 20 mg PO DAILY Qty: 90 3RF hydroxyzine pamoate 100 mg capsule 100 mg PO BEDTIME Qty: 90 3RF Mounjaro 5 mg/0.5 mL pen injector 5 mg SUBCUT QWEEK Qty: 2 0RF Rx Instructions: Begin 5mg dosage after completing four weeks of 2.5mg dosage. atorvastatin 40 mg tablet 40 mg PO DAILY Qty: 90 3RF omeprazole 40 mg capsule,delayed release(DR/EC) 40 mg PO DAILY Qty: 90 3RF Referrals: Amol Arce MD [Primary Care Provider] - Visit Report Forms: Patient Portal/API <Beckie Rivera DO - Last Filed: 02/18/22 06:56> Cosign ED Attending Cindyature Attestation: I was immediately available in the department for consultation. Documentation has been reviewed. I agree with assessment and plan.
== END 2022-02-09 17:42 | disposition home or self-care (01) ==
PROVIDERS: Emergency Provider Student in an Organized Health Care Education/Training Program; PCP Student in an Organized Health Care Education/Training Program
DX: S52.91XA Unspecified fracture of right forearm, initial encounter for closed fracture (principal); W18.30XA Fall on same level, unspecified, initial encounter
CPT/HCPCS: 29125; 73110; 99283; 99284

== ENCOUNTER → 2022-06-03 13:11 | Outpatient (CLI) | payer MEDICARE, SELFPAY ==
[2022-06-03 13:49] LABS: Add Manual Diff / Slide Review NO; Basophils Absolute Auto 100 /uL (0-100); Basophils Percent Auto 1.8 % (0-2); Eosinophils Absolute Auto 100 /uL (0-450); Eosinophils Percent Auto 1.4 % (2-4); Hematocrit 48.5 % (41-53); Hemoglobin 16.1 g/dL (13.5-17.5); Lymphocytes Absolute Auto 2300 /uL (1100-4500); Lymphocytes Percent Auto 36.4 % (25-40); Mean Corpuscular HGB Conc 33.1 % (30-36); Mean Corpuscular Volume 84.5 fL (80-100); Monocytes Absolute Auto 500 /uL (0-900); Monocytes Percent Auto 8.7 % (3-14); Neutrophils Absolute Auto 3300 /uL (1500-7000); Neutrophils Percent Auto 51.7 % (50-75); Platelet Count 216 X10^3/uL (150-400); Red Blood Cell Count 5.74 X10^6/uL (4.5-5.9); Red Cell Distribution Width 14.8 % (11.6-14.8); White Blood Cell Count 6.3 X10^3/uL (4.5-11.0)
[2022-06-03 14:17] LABS: Alanine Aminotransferase 44 IU/L (<50); Albumin Globulin Ratio 1.1 (1.0-2.8); Alkaline Phosphatase 102 U/L (38-126); Aspartate Aminotransferase 38 IU/L (17-59); Bilirubin Total 0.9 mg/dL (0.2-1.3); Bilirubin Unconjugated 0.5 mg/dL (0.0-1.1); Globulin 3.6 g/dL (1.7-4.1); HEMOLYSIS 46 (0-50); Total Protein 7.6 g/dL (6.3-8.2)
== END ==
PROVIDERS: Podiatrist; PCP Student in an Organized Health Care Education/Training Program; Referring Provider Student in an Organized Health Care Education/Training Program; Visit Provider Student in an Organized Health Care Education/Training Program
DX: B35.1 Tinea unguium (principal)
CPT/HCPCS: 36415; 80076; 85025

== ENCOUNTER → 2023-04-30 13:14 | Outpatient (CLI) | payer MEDICARE, SELFPAY | PROVIDERS: PCP Physician Assistant; Visit Provider Nurse Practitioner Family | DX: N39.0 Urinary tract infection, site not specified (principal) | CPT/HCPCS: 87086 ==

== ENCOUNTER → 2023-05-25 12:09 | Outpatient (CLI) | payer MEDICARE, SELFPAY ==
--- NOTE | 2023-05-25 12:10 | DI.US.S_ITS ---
PROCEDURE: US ABDOMEN LIMITED INDICATIONS: Abnormal liver function test TECHNIQUE: Real-time focused scanning was performed of the abdomen, with image documentation. COMPARISON: [facility], US, US ABD AORTA ANEURYSM SCREEN, 09/29/2018, 10:02. [facility], US, US RENAL COMPLETE, 09/05/2019, 7:55. [facility], CT, CT ABDOMEN PELVIS W CON, 10/14/2020, 13:49. FINDINGS: The liver demonstrates enlarged size. The liver demonstrates generalized prominently increased echogenicity. This decreases ultrasound sensitivity for detection of hepatic masses. 3-4 layering gallstones are seen, which measure up to 5 mm. The gallbladder wall is not thickened, measuring 3 mm or less. No specific pericholecystic fluid is seen. The sonographic Mckenna sign is negative. There is no biliary dilatation, the common bile duct measures 6 mm. The pancreas is not well seen, secondary to overlying bowel gas. IMPRESSION: Enlarged, fatty liver. Layering gallstones are seen, yet without additional sonographic signs of cholecystitis. Negative for biliary dilatation. Please correlate with physical examination findings, patient presentation, and laboratory values. Dictated by: Ambrose Augutse M.D. on 05/25/2023 at 13:47 Approved by: Ambrose Auguste M.D. on 05/25/2023 at 13:48
== END ==
LOC: US 12:09
PROVIDERS: PCP Physician Assistant; Referring Provider Internal Medicine; Visit Provider Internal Medicine
DX: K80.20 Calculus of gallbladder without cholecystitis without obstruction (principal); K76.0 Fatty (change of) liver, not elsewhere classified; R79.89 Other specified abnormal findings of blood chemistry
CPT/HCPCS: 76705

== ENCOUNTER 2023-07-20 11:28 | Day surgery (SDC) | payer MEDICARE, SELFPAY ==
[2023-07-13 08:19] VITALS: BMI 31.9
--- NOTE | 2023-07-20 | PATH_ITS ---
[facility] Accession Number: [id number] No. of containers..01 Tissue . 01 Material submitted: . gallbladder - GALLBLADDER . 01 Diagnosis: GALLBLADDER, CHOLECYSTECTOMY: Follicular cholecystitis and cholelithiasis. [facility] 07/22/2023 1139 Local . 01 Electronically signed: . Vicki Del Real MD, Pathologist NPI- [id number] . 01 Gross description: . Received in formalin with two identifiers and gallbladder, is a disrupted gallbladder, 7.2 x 3.0 x 1.3 cm, with a full thickness defect in the fundus measuring 0.6 cm in greatest dimension. The cystic duct margin is inked blue, and a fernández lymph node candidate is identified, 0.6 cm in greatest dimension. The lumen contains a small amount of green viscous bile, as well as multiple black, roughened calculi measuring up to 0.5 cm in greatest dimension, not grossly obstructing the cystic duct. The mucosa is green and velvety with no yellow discoloration, polyps, or lesions identified. The cruz average 0.2 cm thick, and commissary representative sections to include the cystic duct margin, intact lymph node candidate, and full thickness sections are submitted in A1. ([id number]) /MRV 07/21/2023 1713 Local . 01 Pathologist provided ICD-10: K81.1, K80.10 . 01 CPT . 692368 Specimen Comment: A courtesy copy of this report has been sent to [phone] Performed at: [address] [facility] [address], [place], [place] [id number] MD Fran Herrera MD Phone: [phone]
[2023-07-20 11:51] VITALS: BP 154/87; PULSE 83; RESP 18; TEMP 36.4; O2SAT 95; BMI 31.9
[2023-07-20] MEDS: ACETAMINOPHEN 325 MG TABLET 975 MG PO (11:59)
[2023-07-20] MEDS: LACTATED RINGERS 1,000 ML 42 ML IV ×2 (11:59→13:43)
--- NOTE | 2023-07-20 12:18 | PM.PREOP ---
Pre-operative Note COVID-19 COVID-19 status: Not tested Interval Note History & Physical reviewed/Exam performed by Physician: Yes Changes to H&P: No ASA Class (for procedural sedation): III
[2023-07-20] MEDS: CEFAZOLIN 2 GM/100 ML PREMIX 100 ML IV (13:05)
--- NOTE | 2023-07-20 13:21 | SUR.OPER ---
Supine on padded OR bed, head on pillow, arms secured on padded arm boards at <90 degrees abduction, legs uncrossed, safety belt at thigh, tape over blanket over lower legs.
[2023-07-20] MEDS: BUPIVACAINE 0.5% (PF) 30 ML, EPINEPHrine 0.15 MG INJ (13:29)
--- NOTE | 2023-07-20 14:10 | P.OP_ITS ---
Operative Date/Time/Diagnoses Date of procedure: 07/20/23 Time of procedure: 14:10 Pre-op diagnosis: Cholelithiasis Post-op diagnosis: same Procedure & Clinicians Procedure: Laparoscopic cholecystectomy Same procedure as scheduled: Yes Surgeon: [facility] Clinical Marketer: Goldy Carolina Anesthesia Type: General Operative Notes Procedure in detail: The patient was given preoperative antibiotics. The patient was brought to the operating room and placed on the table in the supine position. General endotracheal anesthesia was induced. The abdomen was prepped and draped. A time-out was performed. We made a 1 cm infraumbilical incision. We dissected down to the anterior sheath. We divided the anterior sheath and grasped the edges between Chintan clamps. There was a little bit of visible suture which corresponded to the inferior extent of the mesh. We grasped the posterior sheath between tonsil clamps and divided it sharply with Metzenbaum scissors. We could see into the peritoneal cavity. The Krissy port was placed and the ab domen was insufflated to 15 mmHg. A 5 mm 30 degree laparoscopic was inserted. There was no evidence of any injury from the entry. Next, we placed 5 mm ports in the subxiphoid position and right upper quadrant at the midclavicular line and anterior axillary line. The patient was then positioned in reverse Trendelenburg and the table was tilted to the left. The gallbladder was grasped at the dome and retracted cephalad. We then dissected the cystic structures with a combination of hook cautery and blunt dissection. We obtained a critical view. We placed clips on the cystic duct and artery and divided the cystic duct and artery sharply between the clips. The gallbladder was then dissected off the liver and placed in a specimen retrieval bag. We irrigated the right upper quadrant and all the aspirate returned clear. We then removed the 5 mm ports under direct vision we removed the Krissy port. We then injected some local into the fascia and closed the fascia with 2 interrupted 0 Vicryl sutures. The skin incisions were closed with 4-0 Monocryl and Steri-Strips were applied. Band-Aids were applied over the Steri-Strips. EBL: 20 mL Specimen: Gallbladder and contents Goldy CAMACHO provided assistance with exposure, retraction and closure of incisions. Post-operative Condition: stable Disposition: PACU
[2023-07-20 14:24] VITALS: BP 126/66; PULSE 73; RESP 14; TEMP 36.6; O2SAT 100
[2023-07-20 14:29] VITALS: BP 134/68; PULSE 78; RESP 15; TEMP 36.6; O2SAT 99
[2023-07-20 14:34] VITALS: BP 133/68; PULSE 72; RESP 18; TEMP 36.5; O2SAT 98
[2023-07-20] MEDS: OXYCODONE IR 5 MG TABLET PO (14:34)
[2023-07-20] MEDS: ONDANSETRON 4 MG/2 ML INJ IV (14:35)
[2023-07-20] MEDS: hydrOXYzine 50 MG/ML INJ 25 MG IM (14:38)
[2023-07-20 14:41] VITALS: BP 135/71; PULSE 73; RESP 14; TEMP 36.4; O2SAT 97
== END 2023-07-20 15:04 | disposition home or self-care (01) ==
PROVIDERS: PCP Physician Assistant; Referring Provider Surgery; Visit Provider Surgery
PROC: 0FT44ZZ Resection of Gallbladder, Percutaneous Endoscopic Approach (ICD-10-PCS; CPT 47562; principal; 2023-07-20 12:45)
DX: K80.10 Calculus of gallbladder with chronic cholecystitis without obstruction (principal)
CPT/HCPCS: 47562; J0171; J0690; J1100; J1885; J2405; J2704; J3010; J3410

== ENCOUNTER 2023-11-04 06:38 | Day surgery (SDC) | payer MEDICARE, SELFPAY ==
--- NOTE | 2023-11-04 | PATH_ITS ---
[facility] Accession Number: [id number] No. of containers..01 Tissue . 01 Material submitted: . rectum - RECTAL POLYP . 01 Diagnosis: RECTAL POLYP: Tubular adenoma. [facility] 11/09/2023 1347 Local . 01 Electronically signed: . Fran Herrera MD, Pathologist NPI- [id number] . 01 Gross description: . Received in formalin with two patient identifiers and rectal polyp, is a single fernández soft tissue fragment 0.3 cm in greatest dimension. Submitted in cassette A1. ([id number]) /YOSSI 11/09/20237 Local . 01 Pathologist provided ICD-10: D12.8 . 01 CPT . 649830 Specimen Comment: A courtesy copy of this report has been sent to [phone] Performed at: [address] [id number] MD Fran Herrera MD Phone: [phone]
[2023-11-04] MEDS: LACTATED RINGERS 1,000 ML 150 ML IV (07:20)
[2023-11-04 07:21] VITALS: BP 136/85; PULSE 93; RESP 16; TEMP 36.1; O2SAT 95
--- NOTE | 2023-11-04 07:48 | P.HP_ITS ---
History of Present Illness History of Present Illness Date Patient Seen: 11/04/23 Time Patient Seen: 07:48 Chief complaint: SDC Narrative: En is a 73-year-old man who is here for colonoscopy. He has had polyps in the past. No family history of colon cancer. [facility] Medical History Elevated cholesterol Emphysema lung Asthma Hernia Fatty liver Gallstones Adrenal incidentaloma Tinnitus of both ears Depression (~1999) Hemorrhoid (~2019) GERD (gastroesophageal reflux disease) Surgical History Hx of hernia repair (1984) Anesthesia Abdominal hernia (~1989) Family History Father Hypertension Hyperlipidemia Mother Hypertension Breast cancer Social History marital status: details: Pt. lives with his brother number of children: 2 household members: family lives independently: Yes occupational status: previously employed Smoking Status: Former smoker alcohol intake: current substance use type: does not use caffeine: Yes Meds Home Medications and Allergies Home Medications Medication Instructions Recorded Confirmed Type atorvastatin 40 mg tablet 40 mg PO DAILY #90 tabs 08/13/22 11/04/23 Rx omeprazole 40 mg capsule,delayed 40 mg PO DAILY #90 caps 08/13/22 11/04/23 Rx release hydroxyzine pamoate 100 mg capsule 100 mg PO BEDTIME Insomnia #90 caps 03/01/23 11/04/23 Rx mirtazapine 30 mg tablet 30 mg PO DAILY #90 tabs 03/01/23 11/04/23 Rx olanzapine 20 mg tablet 20 mg PO DAILY #90 tabs 03/01/23 11/04/23 Rx cholestyramine (with sugar) 4 gram 1 ea PO BID 11/04/23 11/04/23 History powder for susp in a packet Allergies Allergy/AdvReac Type Severity Reaction Status Date / Time No Known Drug Allergies Allergy Verified 11/04/23 07:18 Exam Vital Signs (past 8 hours): - 11/04/23 07:21 Temperature 97.0 F L Pulse Rate 93 H Respiratory Rate 16 Blood Pressure 136/85 Pulse Oximetry 95 Oxygen Delivery Method Room Air Oxygen Delivery Method Room Air Const General: healthy appearing Assessment & Plan Assessment and plan (1) Colon cancer screening: Status: Acute Plan We reviewed the risks and benefits of colonoscopy and he would like to proceed Time-Based Coding :: [TOTAL MINUTES] spent with patient and on the chart (including review of chart, obtaining history, exam, reviewing outside data, placing orders, documenting exam and treatment plan, and counseling patient) on [DATE].
--- NOTE | 2023-11-04 08:14 | PM.OP.COLON ---
Operative Date/Time/Diagnoses Date of procedure: 11/04/23 Time of procedure: 08:14 Pre-op diagnosis: Colon cancer screening Post-op diagnosis: same Procedure & Clinicians Study performed: Colonoscopy Same procedure as scheduled: Yes Surgeon: Luis Eduardo Pfeiffer Procedure Notes Procedure in detail: Surgeon: Luis Eduardo Pfeiffer MD Anesthesia: Pedro Angelo D.O. Procedure: The patient was brought to the endoscopy suite, placed in left lateral decubitus position. The patient was connected to monitoring devices. A time-out was performed. Sedation was administered. Once the patient was adequately sedated, a digital rectal exam was performed and was normal. The scope was then inserted and advanced to the cecum where the appendiceal orifice was identified and photographed. The scope was then slowly withdrawn over greater than 6 minutes. The mucosa was thoroughly inspected. There was a 5 mm polyp in the proximal rectum removed with a cold forceps biopsy. The scope was retroflexed in the rectum. No other abnormalities were seen. The scope was straightened and removed. The patient was awakened and brought to recovery. Scope withdrawal time: 10 minutes Sedation time: 14 minutes EBL: 2 mL Findings: 5 mm polyp in the proximal rectum Post-procedure Disposition: PACU
[2023-11-04 08:15] VITALS: BP 125/74; PULSE 83; RESP 16; TEMP 36.2; O2SAT 95
[2023-11-04 08:20] VITALS: BP 125/74; PULSE 75; RESP 16; O2SAT 98
== END 2023-11-04 08:37 | disposition home or self-care (01) ==
PROVIDERS: PCP Physician Assistant; Referring Provider Surgery; Visit Provider Surgery
PROC: 0DJD8ZZ Inspection of Lower Intestinal Tract, Via Natural or Artificial Opening Endoscopic (ICD-10-PCS; CPT 45378; principal; 2023-11-04 07:45)
DX: Z12.11 Encounter for screening for malignant neoplasm of colon (principal); D12.8 Benign neoplasm of rectum
CPT/HCPCS: 45380; J2704

== ENCOUNTER → 2023-11-10 12:01 | Outpatient (CLI) | payer MEDICARE, SELFPAY ==
--- NOTE | 2023-11-10 | DI.RAD.S_ITS ---
PROCEDURE: XR ABDOMEN MIN 2V INDICATIONS: lower left quadrant pain, status post colonoscopy 11/04/23 TECHNIQUE: 2 views of the abdomen were acquired. COMPARISON: None. FINDINGS: Surgical changes and devices: None. Bowel: No pneumoperitoneum. The bowel gas pattern is normal. Moderately large fecal load. Soft tissues: No masses; visualized solid organ contours appear normal in size. No suspicious abdominal calcifications. Small left pleural effusion. Bones: No suspicious bony abnormalities. IMPRESSION: Moderately large fecal load. Normal bowel gas pattern. No free air. Small left pleural effusion. Dictated by: Juan R Garrison M.D. on 11/10/2023 at 12:53 Approved by: Juan R Garrison M.D. on 11/10/2023 at 12:56
== END ==
PROVIDERS: PCP Physician Assistant
DX: J90 Pleural effusion, not elsewhere classified (principal); R10.9 Unspecified abdominal pain
CPT/HCPCS: 74019

== ENCOUNTER 2023-11-11 10:59 | Emergency (ER) | payer MEDICARE, SELFPAY ==
[2023-11-11] VITALS (11 sets, daily range): BP systolic 116–149; BP diastolic 59–88; PULSE 65–80; RESP 14–22; TEMP 36.6; O2SAT 92–94; BMI 31.9
--- NOTE | 2023-11-11 11:24 | EKG_ITS ---
[facility] [id number] [place] [id number] Test Date: 2023-11-11 Pat Name: En Cano Department: [facility] Room: Gender: Male Flumer: EMIL : 1950 Requested By: Order Number: [id number] Reading MD: Erickson Rivera Measurements Intervals [place] Rate: 87 P: 47 [place]: 136 QRS: 8 QRSD: 82 T: 37 QT: 388 QTc: 466 Interpretive Statements Normal sinus rhythm Nonspecific ST abnormality Electronically Signed On 11-11-2023 19:52:23 PDT by Erickson Rivera
[2023-11-11 11:37] LABS: Add Manual Diff / Slide Review NO; Basophils Absolute Auto 100 /uL (0-100); Eosinophils Absolute Auto 200 /uL (0-450); Eosinophils Percent Auto 2.1 % (2-4); Hematocrit 45.2 % (41-53); Lymphocytes Absolute Auto 2200 /uL (1100-4500); Lymphocytes Percent Auto 29.4 % (25-40); Mean Corpuscular HGB Conc 33.2 % (30-36); Mean Corpuscular Hemoglobin 27.9 PG (26-34); Monocytes Absolute Auto 900 /uL (0-900); Monocytes Percent Auto 12.4 % (3-14); Neutrophils Absolute Auto 4200 /uL (1500-7000); Neutrophils Percent Auto 55.1 % (50-75); Platelet Count 268 X10^3/uL (150-400); Red Blood Cell Count 5.38 X10^6/uL (4.5-5.9); Red Cell Distribution Width 14.7 % (11.6-14.8); White Blood Cell Count 7.6 X10^3/uL (4.5-11.0)
[2023-11-11 11:49] LABS: Alanine Aminotransferase 335 IU/L (<50); Albumin 3.8 g/dL (3.5-5.0); Alkaline Phosphatase 361 U/L (38-126); Aspartate Aminotransferase 171 IU/L (17-59); BUN Creatinine Ratio 10.9 (6-22); Bilirubin Total 1.5 mg/dL (0.2-1.3); Blood Urea Nitrogen 11 mg/dL (9-20); Calcium 9.3 mg/dL (8.4-10.2); Carbon Dioxide 24 mmol/L (22-32); Chloride 105 mmol/L (98-107); Estimated Glomerular Filt Rate > 60 mL/min (>60); Globulin 3.8 g/dL (1.7-4.1); Glucose 132 mg/dL (80-110); HEMOLYSIS 66 (0-50); Lipase 233 U/L (23-300); Potassium 3.9 mmol/L (3.4-5.1); Sodium 137 mmol/L (137-145); Total Protein 7.6 g/dL (6.3-8.2)
--- NOTE | 2023-11-11 11:55 | ED_ITS ---
HPI - Abdominal Pain General Chief Complaint: Abdominal Pain Stated Complaint: poss gallstones sent from PCP Time Seen by Provider: 11/11/23 11:55 Source: patient Mode of arrival: Ambulatory Limitations: no limitations History of Present Illness HPI narrative: 73-year-old male history of GERD, dyslipidemia, mood disorder with cholecystectomy 2 months prior patient presents with a about a week of nausea, patient has not appreciated any jaundiced no abdominal pain except when he pushes on his right upper quadrant. He did not threw up several times about a week ago but no persistent vomiting. He is continued to be nauseated. States no pain currently. He denies any issues with bowel movements no diarrhea or constipation. No back or flank pain. States his urine has been dark but no dysuria, urgency or frequency. He has not appreciate any jaundice or yellowing of the skin. Patient followed with his primary care physician who ordered outpatient labs and found it elevated bilirubin and LFTs. Was referred to come to the ED. Patient takes omeprazole, atorvastatin, hydroxyzine, mirtazapine, olanzapine as his daily medications. He states cholecystectomy was about 2 months ago here at [facility] states it went well. Has a prior hernia repair as well. No known drug allergies. No regular tobacco, alcohol or recreational drugs. His primary care provider is Lucy Beckford. Related Data Home Medications Medication Instructions Recorded Confirmed cholestyramine (with sugar) 4 gram 1 ea PO BID 11/04/23 11/04/23 powder for susp in a packet Previous Rx's Medication Instructions Recorded atorvastatin 40 mg tablet 40 mg PO DAILY #90 tabs 08/13/22 omeprazole 40 mg capsule,delayed 40 mg PO DAILY #90 caps 08/13/22 release hydroxyzine pamoate 100 mg capsule 100 mg PO BEDTIME Insomnia #90 caps 03/01/23 mirtazapine 30 mg tablet 30 mg PO DAILY #90 tabs 03/01/23 olanzapine 20 mg tablet 20 mg PO DAILY #90 tabs 03/01/23 ondansetron 4 mg disintegrating 4 mg PO Q6H PRN nausea and 11/11/23 tablet vomiting #10 tabs Allergies Allergy/AdvReac Type Severity Reaction Status Date / Time No Known Drug Allergies Allergy Verified 11/11/23 11:08 Review of Systems Review of Systems ROS Unobtainable: All systems reviewed & are unremarkable except as noted in HPI and below Patient History Medical History Elevated cholesterol Emphysema lung Asthma Hernia Fatty liver Gallstones Adrenal incidentaloma Tinnitus of both ears Depression (~1999) Hemorrhoid (~2019) GERD (gastroesophageal reflux disease) Surgical History Hx of hernia repair (1984) Anesthesia Abdominal hernia (~1989) Family History Father Hypertension Hyperlipidemia Mother Hypertension Breast cancer Social History marital status: details: Pt. lives with his brother number of children: 2 household members: family lives independently: Yes occupational status: previously employed Smoking Status: Former smoker alcohol intake: current substance use type: does not use caffeine: Yes Smoking Status: Former smoker alcohol intake frequency: holidays/special occasions only Substance Use Type: does not use Exam Narrative Exam Narrative: GENERAL: Alert and oriented x three, elderly male in mild distress. No jaundice appreciated. HEENT: Head normocephalic, atraumatic, EOMI, pupils reactive, face symmetric, moist mucous membranes NECK: Supple, full range of motion CARDIOVASCULAR: Regular rate and rhythm without murmurs, rubs or gallops. RESPIRATORY: Breath sounds equal bilaterally, no wheezes rales or rhonchi. ABDOMEN: Soft, mildly tender right upper quadrant epigastric region. Normoactive bowel sounds all 4 quadrants. No guarding or rebound, rigidity, no mass, patient's incisions are well healed, has a large midline vertical incision that is healed as well. : No CVA tenderness EXTREMITIES: Normal range of motion, no clubbing or edema. Neurovascularly intact NEUROLOGICAL: Cranial nerves II through XII grossly intact. Moving all extremities SKIN: Warm, dry, no petechiae, no rashes or lesions. Initial Vital Signs Initial Vital Signs: Vital Signs Temperature 97.9 F 11/11/23 11:00 Pulse Rate 80 11/11/23 11:00 Respiratory Rate 14 11/11/23 11:00 Blood Pressure 147/86 H 11/11/23 11:00 Pulse Oximetry 92 11/11/23 11:00 Oxygen Delivery Method Room Air 11/11/23 11:00 Course Orders Ordered: ED Orders 11/11/23 11:12 EKG-12 Lead Stat 11/11/23 11:19 Urinalysis and Microscopic Stat 11/11/23 11:24 Complete Blood Count AUTO DIFF Stat Comprehensive Metabolic Panel Stat Lipase Stat 11/11/23 12:06 CT abdomen pelvis w con Stat 11/11/23 13:56 US abdomen limited Stat Discontinued Medications Ketorolac Tromethamine (Ketorolac 30 Mg/Ml Vial) 15 mg IV NOW ONE Stop: 11/11/23 16:32 Last Admin: 11/11/23 16:33 Dose: 15 mg Documented By: WESLEY Ondansetron HCl (Ondansetron 4 Mg/2 Ml Inj) 4 mg IV NOW PRN PRN Reason: Nausea And Vomiting Ondansetron HCl (Ondansetron 4 Mg Odt) 4 mg PO NOW PRN PRN Reason: Nausea And Vomiting Ondansetron HCl (Ondansetron 4 Mg/2 Ml Inj) 4 mg IV NOW ONE Stop: 11/11/23 12:07 Last Admin: 11/11/23 12:15 Dose: 4 mg Documented By: DALY Vital Signs Vital signs: Vital Signs - 8 hr 11/11/23 11:33 11/11/23 11:33 11/11/23 11:36 Pulse Rate 79 78 Respiratory Rate 17 Blood Pressure 133/68 Pulse Oximetry 92 93 Oxygen Delivery Method 11/11/23 11:36 11/11/23 11:45 11/11/23 11:45 Pulse Rate 75 Respiratory Rate 20 Blood Pressure 116/88 126/71 Pulse Oximetry 93 Oxygen Delivery Method 11/11/23 12:00 11/11/23 12:00 11/11/23 12:25 Pulse Rate 76 Respiratory Rate 22 Blood Pressure 134/77 149/65 H Pulse Oximetry 93 Oxygen Delivery Method 11/11/23 12:25 11/11/23 12:30 11/11/23 12:30 Pulse Rate 68 71 Respiratory Rate 17 20 Blood Pressure 137/59 L Pulse Oximetry 94 94 Oxygen Delivery Method 11/11/23 13:45 11/11/23 14:31 11/11/23 16:36 Pulse Rate 66 68 65 Respiratory Rate 16 16 14 Blood Pressure 132/74 139/77 135/74 Pulse Oximetry 94 94 93 Oxygen Delivery Method Room Air Room Air Room Air 11/11/23 16:58 Pulse Rate 74 Respiratory Rate 20 Blood Pressure 129/77 Pulse Oximetry 94 Oxygen Delivery Method Room Air MDM - Abdominal Pain Lab Data 11/11/23 11:24 11/11/23 11:24 Labs: Lab Results 11/11/23 11/11/23 Range/Units 11:19 11:24 WBC 7.6 (4.5-11.0) X10^3/uL RBC 5.38 (4.5-5.9) X10^6/uL Hgb 15.0 (13.5-17.5) g/dL Hct 45.2 (41-53) % MCV 84.0 (80-100) fL MCH 27.9 (26-34) PG MCHC 33.2 (30-36) % RDW 14.7 (11.6-14.8) % Plt Count 268 (150-400) X10^3/uL Neut % (Auto) 55.1 (50-75) % Lymph % (Auto) 29.4 (25-40) % [place] % (Auto) 12.4 (3-14) % Eos % (Auto) 2.1 (2-4) % Baso % (Auto) 1.0 (0-2) % Neut # (Auto) 4200 (5622-1995) /uL Lymph # (Auto) 2200 (0544-1630) /uL [place] # (Auto) 900 (0-900) /uL Eos # (Auto) 200 (0-450) /uL Baso # (Auto) 100 (0-100) /uL Sodium 137 (137-145) mmol/L Potassium 3.9 (3.4-5.1) mmol/L Chloride 105 (98-107) mmol/L Carbon Dioxide 24 (22-32) mmol/L BUN 11 (9-20) mg/dL Creatinine 1.01 (0.66-1.25) mg/dL Estimated GFR > 60 (>60) mL/min BUN/Creatinine Ratio 10.9 (6-22) Glucose 132 H (80-110) mg/dL Calcium 9.3 (8.4-10.2) mg/dL Total Bilirubin 1.5 H (0.2-1.3) mg/dL AST 171 H (17-59) IU/L ALT 335 H (<50) IU/L Alkaline Phosphatase 361 H (38-126) U/L Total Protein 7.6 (6.3-8.2) g/dL Albumin 3.8 (3.5-5.0) g/dL Globulin 3.8 (1.7-4.1) g/dL Albumin/Globulin Ratio 1.0 (1.0-2.8) Lipase 233 (23-300) U/L Urine Color Yellow Urine Appearance Clear Urine pH 6.0 (4.5-8.0) Ur Specific [place] 1.020 (1.000-1.035) Urine Protein Negative (Negative) Urine Glucose (UA) Negative (Negative) g/dL Urine Ketones Negative (NEGATIVE) Urine Occult Blood Negative (Negative) Urine Nitrate Negative (Negative) Urine Bilirubin Negative (NEGATIVE) Urine Urobilinogen 1.0 (0.2) E.U./dL Ur Leukocyte Esterase Negative (NEGATIVE) Urine RBC 0-1/hpf (0-5/HPF) Urine WBC 0-1/hpf (0-5/HPF) Ur Squamous Epith Cells 0-1 /hpf (0-5/HPF) Urine Bacteria Occasional (0-1) (None) Ur Culture Indicated? Cult not indicated Vol Urine Centrifuged 10ml (spun) Imaging Data CT scan - abdomen/pelvis: Radiologist's Impression: [place] [address] CT Scan Report Signed Patient: En Cano MR#: [id number] : 1950 Acct:[id number] Age/Sex: 73 / M Date of Service: 11/11/23 Loc: ED Accession Number: [id number] Procedure: CT abdomen pelvis w con Ordering Provider: Teri Nails D.O. PROCEDURE: CT ABDOMEN PELVIS W CON INDICATIONS: nausea, elevated liver enzymes, had cholecystectomy 2 months ago. TECHNIQUE: After the administration of intravenous contrast, axial sections acquired from the lung bases to the pubic symphysis. Coronal and sagittal reformats were performed. For radiation dose reduction, the following was used: automated exposure control, adjustment of mA and/or kV according to patient size. COMPARISON: None. FINDINGS: Image quality: Diagnostic. Lower Chest: No significant findings. ABDOMEN: New mild nonspecific wall thickening of the cecum and proximal ascending colon commonly artifact from partial nondistention although mild colitis or rarely colonic lesion which may include neoplasm could give this appearance. Correlation with direct visualization colonoscopy would be useful for further evaluation. Small sliding hiatal hernia with nonspecific wall thickening of the stomach and 1st portion of the duodenum more than expected for artifact from partial nondistention and mild gastritis, duodenitis could give this appearance. 4 mm low-attenuation right lobe of the liver (series 2, image 19) too small to characterize but commonly represents cyst, hemangioma or other lesion unchanged. Mild diffuse low-attenuation of the liver, hepatic steatosis or intrinsic hepatic disease unchanged. 1 cm left and 5 mm right low-attenuation adrenal gland nodules unchanged commonly adenomas or other lesions. Moderate calcifications of the aorta with low-attenuation soft plaque posteriorly just below the level of the renal arteries unchanged. Moderate diverticulosis of the descending and sigmoid colon without CT evidence of diverticulitis. Mildly enlarged prostate gland and seminal vesicles unchanged. Moderate degenerate changes of the lower thoracic, lumbar spine most notably at L4-5 unchanged. Gallbladder: Status post cholecystectomy. Biliary ducts: No biliary dilation. Pancreas: Mild fatty atrophy unchanged. No ductal dilation. Spleen: Size is within normal limits. Kidneys and Ureters: No hydronephrosis. No solid mass. No complex renal cystic lesion which requires follow up. Small Bowel: Normal caliber, without significant wall thickening. Peritoneum: No abnormal intraperitoneal fluid. No free air. Ventral Wall: No significant ventral hernia. Abdominal Nodes: No retroperitoneal or mesenteric adenopathy by size criteria. Vessels: Aorta and inferior vena cava are normal in size. PELVIS: Pelvic Organs: Unremarkable. Bladder: 2 cm pseudodiverticulum/diverticulum posterior right urinary bladder unchanged. No bladder wall thickening. Pelvic Nodes: No enlarged lymph nodes. Miscellaneous: No inguinal hernias are seen. IMPRESSION: New mild nonspecific wall thickening of the cecum and proximal ascending colon commonly artifact from partial nondistention although mild colitis or rarely colonic lesion which may include neoplasm could give this appearance. Correlation with direct visualization colonoscopy on an outpatient basis would be useful for further evaluation. Small sliding hiatal hernia with new nonspecific wall thickening of the stomach and 1st portion of the duodenum, mild gastritis, duodenitis could give this appearance. Mild hepatic steatosis or intrinsic hepatic disease unchanged. Adrenal gland nodules unchanged. Moderate diverticulosis of the descending and sigmoid colon without CT evidence of diverticulitis. Other chronic findings as discussed above unchanged. Dictated by: Travis Triplett M.D. on 11/11/2023 at 12:26 Approved by: Travis Triplett M.D. on 11/11/2023 at 12:51 US - abdomen: Radiologist's Impression: [address] [address] Ultrasound Report Signed Patient: En Cano MR#: [id number] : 1950 Acct:[id number] Age/Sex: 73 / M Date of Service: 11/11/23 Loc: ED Accession Number: [id number] Procedure: US abdomen limited Ordering Provider: Teri Nails D.O. PROCEDURE: US ABDOMEN LIMITED INDICATIONS: elevated lfts, nausea s/p chol TECHNIQUE: Real-time focused scanning was performed of the abdomen, with image documentation. COMPARISON: [facility], US, US ABDOMEN LIMITED, 05/25/2023, 12:17. [facility], CT, CT ABDOMEN PELVIS W CON, 11/11/2023, 12:19. FINDINGS: Liver demonstrates mild steatosis. Gallbladder is absent. Common bile duct measures 5.7 mm. IMPRESSION: Cholecystectomy. Hepatic steatosis. Dictated by: Macarena Ann M.D. on 11/11/2023 at 16:41 Approved by: Macarena Ann M.D. on 11/11/2023 at 16:41 ECG Data Attestation: I personally reviewed and interpreted this ECG as follows: Interpretation: Sinus rhythm, nonspecific change rate 87 NM 136 QRS 82 QTC 466. MDM Narrative Medical decision making narrative: 73-year-old male with complaint of nausea for the past week had vomiting at the beginning of the week does not appreciate any jaundice but had outpatient labs with elevated LFTs. This confirmed here as well today. Did have a cholecystectomy about 2 months ago mildly tender but he states no pain unless palpation. Plan for CT abdomen pelvis to make sure no intra abdominal process secondary to his prior surgery but suspect he may have some sort of restriction or choledocholithiasis causing his symptoms today. Labs show white count of 7.6 hemoglobin of 15 platelets of 268, chemistries show normal electrolytes, creatinine of 1.01 BUN of 11 glucose of 132, calcium 9.3 bilirubin of 1.5, AST of 171, ALT of 335, alk-phos of 361 lipase of 233. EKG shows sinus rhythm nonspecific change. CT shows new mild nonspecific wall thickening cecum proximal ascending colon artifact from partial nondistention although mild colitis really colonic lesion could include neoplasm. Patient has had recent colonoscopy in the past week making this unlikely to be a neoplasm. Smile sliding hiatal hernia with new nonspecific wall thickening of the stomach and 1st portion of the duodenum mild gastritis duodenitis can give him parents. Mild hepatic steatosis or intrinsic hepatic disease unchanged. Adrenal glands nodules unchanged. He would findings with Dr. Pfeiffer who noted patient had had a colonoscopy in the past week, asked for abdominal ultrasound if negative for bili direct ductal dilation and patient does have mildly elevated LFTs and some nausea we will follow up with the office for further workup. If biliary ducts are dilated would recommend consult with Gastroenterology. Abdominal ultrasound shows hepatic steatosis common bile duct 5.7 mm which is appropriate. Discussed with patient plan to follow up with Dr. Pfeiffer surely they will trend out his liver enzymes and if needed order MRCP as an outpatient. Patient feels comfortable this plan we will give a short course of Zofran as he found this helpful today. All questions answered we did discuss return precautions. Discharge Plan Departure Patient Disposition: Home Clinical Impression: Elevated liver enzymes, Nausea Activity Restrictions/Additional Instructions: Follow up with Dr. Pfeiffer, he is aware of the elevation of your liver enzymes he would like to follow up with you to trend your labs and you may end up with some additional imaging. Call the office tomorrow to set up follow up. You can take Zofran 1 tablet every 6 hours as needed for nausea. Prescription sent to [place]. Please return for fevers, new or worsening abdominal back or flank pain, persistent vomiting, jaundice, black or bloody stools or other new or concerning changes. Prescriptions: New ondansetron 4 mg tablet,disintegrating 4 mg PO Q6H PRN (Reason: nausea and vomiting) Qty: 10 0RF No Action olanzapine 20 mg tablet 20 mg PO DAILY Qty: 90 3RF mirtazapine 30 mg tablet 30 mg PO DAILY Qty: 90 3RF hydroxyzine pamoate 100 mg capsule 100 mg PO BEDTIME Qty: 90 3RF atorvastatin 40 mg tablet 40 mg PO DAILY Qty: 90 0RF Rx Instructions: PT WILL NEED TO BE SEEN BEFORE NEXT RENEWAL 08/13/22 omeprazole 40 mg capsule,delayed release(DR/EC) 40 mg PO DAILY Qty: 90 0RF cholestyramine (with sugar) 4 gram powder in packet 1 ea PO BID Referrals: Lucy Beckford PA-C [Primary Care Provider] - Stand Alone Forms: Patient Portal/API
--- NOTE | 2023-11-11 12:06 | DI.CT.S_ITS ---
PROCEDURE: CT ABDOMEN PELVIS W CON INDICATIONS: nausea, elevated liver enzymes, had cholecystectomy 2 months ago. TECHNIQUE: After the administration of intravenous contrast, axial sections acquired from the lung bases to the pubic symphysis. Coronal and sagittal reformats were performed. For radiation dose reduction, the following was used: automated exposure control, adjustment of mA and/or kV according to patient size. COMPARISON: None. FINDINGS: Image quality: Diagnostic. Lower Chest: No significant findings. ABDOMEN: New mild nonspecific wall thickening of the cecum and proximal ascending colon commonly artifact from partial nondistention although mild colitis or rarely colonic lesion which may include neoplasm could give this appearance. Correlation with direct visualization colonoscopy would be useful for further evaluation. Small sliding hiatal hernia with nonspecific wall thickening of the stomach and 1st portion of the duodenum more than expected for artifact from partial nondistention and mild gastritis, duodenitis could give this appearance. 4 mm low-attenuation right lobe of the liver (series 2, image 19) too small to characterize but commonly represents cyst, hemangioma or other lesion unchanged. Mild diffuse low-attenuation of the liver, hepatic steatosis or intrinsic hepatic disease unchanged. 1 cm left and 5 mm right low-attenuation adrenal gland nodules unchanged commonly adenomas or other lesions. Moderate calcifications of the aorta with low-attenuation soft plaque posteriorly just below the level of the renal arteries unchanged. Moderate diverticulosis of the descending and sigmoid colon without CT evidence of diverticulitis. Mildly enlarged prostate gland and seminal vesicles unchanged. Moderate degenerate changes of the lower thoracic, lumbar spine most notably at L4-5 unchanged. Gallbladder: Status post cholecystectomy. Biliary ducts: No biliary dilation. Pancreas: Mild fatty atrophy unchanged. No ductal dilation. Spleen: Size is within normal limits. Kidneys and Ureters: No hydronephrosis. No solid mass. No complex renal cystic lesion which requires follow up. Small Bowel: Normal caliber, without significant wall thickening. Peritoneum: No abnormal intraperitoneal fluid. No free air. Ventral Wall: No significant ventral hernia. Abdominal Nodes: No retroperitoneal or mesenteric adenopathy by size criteria. Vessels: Aorta and inferior vena cava are normal in size. PELVIS: Pelvic Organs: Unremarkable. Bladder: 2 cm pseudodiverticulum/diverticulum posterior right urinary bladder unchanged. No bladder wall thickening. Pelvic Nodes: No enlarged lymph nodes. Miscellaneous: No inguinal hernias are seen. IMPRESSION: New mild nonspecific wall thickening of the cecum and proximal ascending colon commonly artifact from partial nondistention although mild colitis or rarely colonic lesion which may include neoplasm could give this appearance. Correlation with direct visualization colonoscopy on an outpatient basis would be useful for further evaluation. Small sliding hiatal hernia with new nonspecific wall thickening of the stomach and 1st portion of the duodenum, mild gastritis, duodenitis could give this appearance. Mild hepatic steatosis or intrinsic hepatic disease unchanged. Adrenal gland nodules unchanged. Moderate diverticulosis of the descending and sigmoid colon without CT evidence of diverticulitis. Other chronic findings as discussed above unchanged. Dictated by: Travis Triplett M.D. on 11/11/2023 at 12:26 Approved by: Travis Triplett M.D. on 11/11/2023 at 12:51
[2023-11-11] MEDS: ONDANSETRON 4 MG/2 ML INJ IV (12:15)
[2023-11-11 12:18] LABS: Appearance Urine UA CLEAR; Bilirubin Urine UA NEGATIVE (NEGATIVE); Color Urine UA YELLOW; Glucose Urine UA NEGATIVE (Negative); Ketones Urine UA NEGATIVE (NEGATIVE); Leukocyte Esterase Urine UA NEGATIVE (NEGATIVE); Nitrite Urine UA NEGATIVE (Negative); Occult Blood Urine UA NEGATIVE (Negative); Protein Urine UA NEGATIVE (Negative)
[2023-11-11 12:26] LABS: Bacteria Urine Occasional (0-1); Culture Indicated Urine Cult Not Indicated; RBC Urine 0-1/HPF (0-5/HPF); Squamous Epithelial Cell Urine 0-1 /HPF (0-5/HPF); Urine Volume 10mL (spun); WBC Urine 0-1/HPF (0-5/HPF)
--- NOTE | 2023-11-11 13:56 | DI.US.S_ITS ---
PROCEDURE: US ABDOMEN LIMITED INDICATIONS: elevated lfts, nausea s/p chol TECHNIQUE: Real-time focused scanning was performed of the abdomen, with image documentation. COMPARISON: [facility], US, US ABDOMEN LIMITED, 05/25/2023, 12:17. [facility], CT, CT ABDOMEN PELVIS W CON, 11/11/2023, 12:19. FINDINGS: Liver demonstrates mild steatosis. Gallbladder is absent. Common bile duct measures 5.7 mm. IMPRESSION: Cholecystectomy. Hepatic steatosis. Dictated by: Macarena Ann M.D. on 11/11/2023 at 16:41 Approved by: Macarena Ann M.D. on 11/11/2023 at 16:41
[2023-11-11] MEDS: KETOROLAC 30 MG/ML VIAL 15 MG IV (16:33)
== END 2023-11-11 16:59 | disposition home or self-care (01) ==
PROVIDERS: Emergency Provider Emergency Medicine; PCP Physician Assistant
DX: R74.8 Abnormal levels of other serum enzymes (principal); R11.0 Nausea; K76.0 Fatty (change of) liver, not elsewhere classified
CPT/HCPCS: 36415; 74177; 76705; 80053; 81001; 83690; 85025; 93005; 96374; 96375; 99284; J1885; J2405; Q9967

== ENCOUNTER → 2023-11-17 11:57 | Outpatient (CLI) | payer MEDICARE, SELFPAY ==
[2023-11-17 13:15] LABS: Add Manual Diff / Slide Review NO; Basophils Absolute Auto 100 /uL (0-100); Basophils Percent Auto 1.2 % (0-2); Eosinophils Absolute Auto 200 /uL (0-450); Eosinophils Percent Auto 2.6 % (2-4); Hematocrit 44.9 % (41-53); Lymphocytes Absolute Auto 2200 /uL (1100-4500); Lymphocytes Percent Auto 30.6 % (25-40); Mean Corpuscular HGB Conc 33.3 % (30-36); Mean Corpuscular Hemoglobin 28.2 PG (26-34); Mean Corpuscular Volume 84.7 fL (80-100); Monocytes Absolute Auto 600 /uL (0-900); Monocytes Percent Auto 8.6 % (3-14); Neutrophils Absolute Auto 4100 /uL (1500-7000); Platelet Count 377 X10^3/uL (150-400); White Blood Cell Count 7.2 X10^3/uL (4.5-11.0)
[2023-11-17 13:38] LABS: Alanine Aminotransferase 216 IU/L (<50); Albumin 3.7 g/dL (3.5-5.0); Alkaline Phosphatase 377 U/L (38-126); Aspartate Aminotransferase 99 IU/L (17-59); BUN Creatinine Ratio 13.9 (6-22); Bilirubin Total 0.9 mg/dL (0.2-1.3); Blood Urea Nitrogen 14 mg/dL (9-20); Calcium 9.2 mg/dL (8.4-10.2); Carbon Dioxide 24 mmol/L (22-32); Chloride 106 mmol/L (98-107); Estimated Glomerular Filt Rate > 60 mL/min (>60); Globulin 3.7 g/dL (1.7-4.1); Glucose 134 mg/dL (80-110); HEMOLYSIS < 15 (0-50); Lipase 194 U/L (23-300); Potassium 3.9 mmol/L (3.4-5.1); Sodium 138 mmol/L (137-145); Total Protein 7.4 g/dL (6.3-8.2)
== END ==
PROVIDERS: PCP Physician Assistant; Referring Provider Surgery; Visit Provider Surgery
DX: R11.0 Nausea (principal); R74.8 Abnormal levels of other serum enzymes
CPT/HCPCS: 36415; 80053; 83690; 85025; 99213

== ENCOUNTER → 2023-11-19 16:41 | Outpatient (CLI) | payer MEDICARE, SELFPAY ==
--- NOTE | 2023-11-19 16:42 | DI.MRI.S_ITS ---
PROCEDURE: MR AB PANCREATIC/MRCP PROTOCOL INDICATIONS: RUQ PAIN W/ELEVATED BILI;2MO S/P LAP ALYSON/ TECHNIQUE: Coronal HASTE through the abdomen, axial 2-D FLASH in- and [id number], and breath-hold T2 FSE with fat saturation through the biliary system and pancreas. Oblique coronal and axial thin-slice HASTE, radial thick-slab HASTE centered on the extrahepatic bile ducts. Intravenous secretin: Not requested. COMPARISON: [facility], CT, CT ABDOMEN PELVIS W CON, 11/11/2023, 12:19. FINDINGS: Image quality: Diagnostic. Gallbladder: Absent. Biliary ducts: No significant intrahepatic or extrahepatic biliary dilation. There are 2 filling defects within the common bile duct, measuring up to 7 mm (series 3, image 23). Pancreas: No ductal dilation. OTHER: Lung bases: Unremarkable. Liver: Moderate signal dropout on the out of phase sequence, consistent with hepatic steatosis. Benign hepatic cyst in segment 6. Spleen: Size is within normal limits. Adrenal Glands: No adrenal nodules. Kidneys and Ureters: No hydronephrosis. No solid mass. No complex renal cystic lesion which requires follow up. Stomach and Bowel: Normal colonic caliber, without significant wall thickening. Peritoneum: No abnormal intraperitoneal fluid. No free air. Ventral Wall: No hernia. Abdominal Nodes: No retroperitoneal or mesenteric adenopathy by size criteria. Vessels: Aorta and inferior vena cava are normal in size. Bones: No aggressive osseous abnormality. IMPRESSION: 2 filling defects within the common bile duct concerning for stones, measuring up to 7 mm. Recommend ERCP. At least moderate hepatic steatosis. Correlate with elevated liver enzymes, as findings could indicate steatohepatitis. Dictated by: Charlie Lopez M.D. on 11/22/2023 at 9:21 Approved by: Charlie Lopez M.D. on 11/22/2023 at 9:42
== END ==
PROVIDERS: PCP Physician Assistant; Referring Provider Family Medicine; Visit Provider Family Medicine
DX: K76.0 Fatty (change of) liver, not elsewhere classified (principal); K76.89 Other specified diseases of liver; R10.9 Unspecified abdominal pain
CPT/HCPCS: 74183; A9579

== ENCOUNTER → 2024-01-11 11:34 | Outpatient (CLI) | payer MEDICARE, SELFPAY ==
[2024-01-11 12:49] LABS: Prostate Specific Antigen 4.12 ng/mL (0.10-4.00)
== END ==
PROVIDERS: PCP Physician Assistant; Referring Provider Urology; Visit Provider Urology
DX: N40.1 Benign prostatic hyperplasia with lower urinary tract symptoms (principal); R35.0 Frequency of micturition; N39.41 Urge incontinence; R97.20 Elevated prostate specific antigen [PSA]; N52.9 Male erectile dysfunction, unspecified
CPT/HCPCS: 36415; 84153

== ENCOUNTER → 2024-03-21 11:42 | Outpatient (CLI) | payer MEDICARE, SELFPAY ==
[2024-03-21 12:07] LABS: Add Manual Diff / Slide Review NO; Basophils Absolute Auto 0 /uL (0-100); Basophils Percent Auto 0.3 % (0-2); Eosinophils Absolute Auto 200 /uL (0-450); Eosinophils Percent Auto 2.8 % (2-4); Hematocrit 46.6 % (41-53); Hemoglobin 15.2 g/dL (13.5-17.5); Lymphocytes Absolute Auto 2400 /uL (1100-4500); Lymphocytes Percent Auto 40.8 % (25-40); Mean Corpuscular HGB Conc 32.7 % (30-36); Mean Corpuscular Hemoglobin 27.5 PG (26-34); Mean Corpuscular Volume 84.1 fL (80-100); Monocytes Absolute Auto 600 /uL (0-900); Monocytes Percent Auto 9.6 % (3-14); Neutrophils Absolute Auto 2700 /uL (1500-7000); Neutrophils Percent Auto 46.5 % (50-75); Platelet Count 219 X10^3/uL (150-400); Red Blood Cell Count 5.54 X10^6/uL (4.5-5.9); Red Cell Distribution Width 15.3 % (11.6-14.8); White Blood Cell Count 5.8 X10^3/uL (4.5-11.0)
[2024-03-21 12:29] LABS: Alanine Aminotransferase 28 IU/L (<50); Albumin 3.8 g/dL (3.5-5.0); Albumin Globulin Ratio 1.4 (1.0-2.8); Alkaline Phosphatase 135 U/L (38-126); Aspartate Aminotransferase 29 IU/L (17-59); Bilirubin Total 0.6 mg/dL (0.2-1.3); Blood Urea Nitrogen 12 mg/dL (9-20); Calcium 8.8 mg/dL (8.4-10.2); Carbon Dioxide 22 mmol/L (22-32); Chloride 110 mmol/L (98-107); Cholesterol 138 mg/dL (140-199); Estimated Glomerular Filt Rate > 60 mL/min (>60); Globulin 2.8 g/dL (1.7-4.1); Glucose 117 mg/dL (80-110); HDL Cholesterol 57 mg/dL (40-60); HEMOLYSIS < 15 (0-50); LDL Cholesterol Calculated 66 mg/dL (<100); Potassium 3.7 mmol/L (3.4-5.1); Sodium 139 mmol/L (137-145); Total Protein 6.6 g/dL (6.3-8.2); Triglycerides 77 mg/dL (35-150)
[2024-03-21 12:59] LABS: TSH w/ Reflex to FT4 1.23 uIU/mL (0.47-4.68)
[2024-03-21 13:02] LABS: Hemoglobin A1C% w Est Avg Glu 5.7 % (4.0-6.0)
== END ==
PROVIDERS: PCP Physician Assistant; Referring Provider Psychiatry & Neurology Psychiatry; Visit Provider Psychiatry & Neurology Psychiatry
DX: F25.0 Schizoaffective disorder, bipolar type (principal); Z79.899 Other long term (current) drug therapy
CPT/HCPCS: 36415; 80053; 80061; 83036; 84443; 85025

== ENCOUNTER → 2024-06-30 12:33 | Outpatient (CLI) | payer MEDICARE, SELFPAY ==
[2024-06-30 16:02] LABS: Prostate Specific Antigen 5.37 ng/mL (0.10-4.00)
== END ==
PROVIDERS: PCP Physician Assistant; Referring Provider Urology; Visit Provider Urology
DX: N40.1 Benign prostatic hyperplasia with lower urinary tract symptoms (principal); R97.20 Elevated prostate specific antigen [PSA]
CPT/HCPCS: 36415; 84153

== ENCOUNTER → 2024-08-13 11:08 | Outpatient (CLI) | payer MEDICARE, SELFPAY ==
--- NOTE | 2024-08-13 11:09 | DI.MRI.S_ITS ---
PROCEDURE: MR PELVIC PROSTATE PROTOCOL INDICATIONS: 74 y/o M w/ elevated PSA, please eval. TECHNIQUE: Coronal HASTE, axial T1 FSE with fat saturation, 3-plane nonbreath-hold T2 FSE. After the administration of contrast, dynamic axial, delayed axial and coronal VIBE or 2-D FLASH with fat saturation through the pelvis. Diffusion weighted imaging and ADC was performed. COMPARISON: [facility], CT, CT ABDOMEN PELVIS W CON, 11/11/2023, 12:19. FINDINGS: Image quality: Diffusion weighted and dynamic contrast enhanced images are diagnostic. Prostate: Gland size is 4.4 x 4.9 x 3.8 cm; ellipsoid gland volume is 43 mL. PSA density is estimated to be 0.125 Transitional zone heterogenous nodules are present, either well encapsulated or mostly encapsulated, compatible with PI-RADS 1 or 2 likely BPH nodules. Seminal vesicles appear clear. A suspected extruded BPH nodule is seen at the right apex anteriorly. Within this region, there is an atypical area of signal abnormality measuring 1.2 x 1.1 cm (4/15). T2 score 3. DWI score 3. DCE positive. Due to the extruded BPH nodule, this is classified using the transitional zone scheme. PI- RADS 3. Genitourinary system: Trabeculated bladder with diverticula usually from chronic obstruction. No hydronephrosis in the distal ureters Bowel and peritoneum: No bowel obstruction or lower abdomen. No drainable ascites. Distal colonic diverticulosis. Nodes and vessels: No enlarged lymph nodes by size criteria. No aneurysmal artery identified Soft tissues: Small fat containing left inguinal hernia Bones: No aggressive appearing focal osseous abnormality. IMPRESSION: PI-RADS 3 lesion in the right anterior peripheral zone, that appears to be within an extruded BPH nodule. No definite extracapsular disease, seminal vesicle involvement, enlarged lymph node in the pelvis by size criteria, or suspicious enhancing osseous lesion. Dictated by: Toni Garcia M.D. on 08/14/2024 at 7:57 Approved by: Toni Garcia M.D. on 08/14/2024 at 8:05
== END ==
LOC: MRI 11:09
PROVIDERS: PCP Physician Assistant; Referring Provider Urology; Visit Provider Urology
DX: N42.9 Disorder of prostate, unspecified (principal); K40.90 Unilateral inguinal hernia, without obstruction or gangrene, not specified as recurrent; R97.20 Elevated prostate specific antigen [PSA]
CPT/HCPCS: 72197; A9579

== ENCOUNTER → 2024-08-23 12:33 | Outpatient (CLI) | payer MEDICARE, SELFPAY ==
[2024-08-23 13:50] LABS: Add Manual Diff / Slide Review NO; Hematocrit 46.3 % (41-53); Hemoglobin 15.4 g/dL (13.5-17.5); Lymphocytes Absolute Auto 2400 /uL (1100-4500); Mean Corpuscular HGB Conc 33.2 % (30-36); Mean Corpuscular Hemoglobin 27.9 PG (26-34); Mean Corpuscular Volume 84.2 fL (80-100); Platelet Count 218 X10^3/uL (150-400)
[2024-08-23 14:09] LABS: Lithium < 0.2 mmol/L (0.6-1.2)
[2024-08-23 14:12] LABS: Alanine Aminotransferase 47 IU/L (<50); Albumin 4.0 g/dL (3.5-5.0); Albumin Globulin Ratio 1.3 (1.0-2.8); Alkaline Phosphatase 128 U/L (38-126); Blood Urea Nitrogen 11 mg/dL (9-20); Calcium 9.2 mg/dL (8.4-10.2); Carbon Dioxide 22 mmol/L (22-32); Chloride 107 mmol/L (98-107); Estimated Glomerular Filt Rate > 60 mL/min (>60); Globulin 3.0 g/dL (1.7-4.1); Glucose 126 mg/dL (70-99); HEMOLYSIS < 15 (0-50); Potassium 4.3 mmol/L (3.4-5.1); Sodium 138 mmol/L (137-145); Total Protein 7.0 g/dL (6.3-8.2)
[2024-08-23 14:45] LABS: TSH w/ Reflex to FT4 0.95 uIU/mL (0.47-4.68)
== END ==
PROVIDERS: Psychiatry & Neurology Psychiatry; PCP Physician Assistant; Referring Provider Urology; Visit Provider Urology
DX: Z79.899 Other long term (current) drug therapy (principal)
CPT/HCPCS: 36415; 80053; 80175; 80178; 84443; 85025

== ENCOUNTER → 2024-11-02 16:12 | Outpatient (CLI) | payer MEDICARE, SELFPAY | LOC: RESP 16:12 | PROVIDERS: PCP Family Medicine; Referring Provider Family Medicine; Visit Provider Family Medicine | DX: J43.9 Emphysema, unspecified (principal); J43.8 Other emphysema; F17.210 Nicotine dependence, cigarettes, uncomplicated; R94.2 Abnormal results of pulmonary function studies | CPT/HCPCS: 94060; 94726; 94729 ==

== ENCOUNTER → 2025-01-09 12:29 | Outpatient (CLI) | payer MEDICARE, SELFPAY | PROVIDERS: PCP Family Medicine; Referring Provider Urology; Visit Provider Urology | DX: R97.20 Elevated prostate specific antigen [PSA] (principal); N40.1 Benign prostatic hyperplasia with lower urinary tract symptoms | CPT/HCPCS: 36415; 84153; 84154 ==

== ENCOUNTER → 2025-01-17 08:35 | Outpatient (CLI) | payer MEDICARE, SELFPAY ==
--- NOTE | 2025-01-17 08:37 | DI.CT.S_ITS ---
PROCEDURE: CT ABDOMEN PELVIS W CON INDICATIONS: Nausea and right side abdominal tenderness on palp TECHNIQUE: After the administration of intravenous contrast, axial sections acquired from the lung bases to the pubic symphysis. Coronal and sagittal reformats were performed. For radiation dose reduction, the following was used: automated exposure control, adjustment of mA and/or kV according to patient size. COMPARISON: [facility], CT, CT ABDOMEN PELVIS W CON, 11/11/2023, 12:19. FINDINGS: Image quality: Diagnostic. Lower Chest: Chronic, calcified and noncalcified tree-in-bud nodules in the lung periphery, likely post infectious/inflammatory . ABDOMEN: Liver: No solid mass. Steatosis. 1 centimeters cyst in segment 6. Gallbladder: Absent. Biliary ducts: No biliary dilation. Pneumobilia, indicating prior sphincterotomy. Pancreas: No ductal dilation. Spleen: Size is within normal limits. Adrenal Glands: No adrenal nodules. Kidneys and Ureters: No hydronephrosis. No solid mass. No complex renal cystic lesion which requires follow up. Stomach and Bowel: Normal colonic caliber, without significant wall thickening. Colonic diverticulosis without evidence of diverticulitis. Peritoneum: No abnormal intraperitoneal fluid. No free air. Ventral Wall: No significant ventral hernia. Abdominal Nodes: No retroperitoneal or mesenteric adenopathy by size criteria. Vessels: Aorta and inferior vena cava are normal in size. PELVIS: Pelvic Organs: Unremarkable. Bladder: No bladder wall thickening, accounting for underdistention. Pelvic Nodes: No enlarged lymph nodes. Miscellaneous: Small direct right inguinal hernia containing fat. Small direct left inguinal hernia containing fat. Bones: No aggressive osseous abnormality. IMPRESSION: Small, direct inguinal hernias containing fat. Moderate hepatic steatosis. Dictated by: Charlie Lopez M.D. on 01/17/2025 at 11:42 Approved by: Charlie Lopez M.D. on 01/17/2025 at 11:45
== END ==
LOC: CT 08:36
PROVIDERS: PCP Family Medicine; Referring Provider Family Medicine; Visit Provider Internal Medicine
DX: R10.9 Unspecified abdominal pain (principal); R11.0 Nausea; R91.8 Other nonspecific abnormal finding of lung field; K76.0 Fatty (change of) liver, not elsewhere classified; K76.89 Other specified diseases of liver; K57.30 Diverticulosis of large intestine without perforation or abscess without bleeding; K40.20 Bilateral inguinal hernia, without obstruction or gangrene, not specified as recurrent
CPT/HCPCS: 74177; Q9967